=== PATIENT | male | born 1965 | race Caucasian/White ===

== ENCOUNTER 2018-09-12 14:13 | Inpatient (IN) ==
[~2018-09-12 14:13] MED LIST: D5 NS 1,000 ML IV ONE
[2018-09-12] MEDS ORDERED: D50W SYRINGE IV ONE (14:35)
[2018-09-12] MEDS ORDERED: VERSED IV ONE (14:39)
[2018-09-12] MEDS ORDERED: NS 1,000 ML ONE ×2 (14:40→17:21)
[2018-09-12] MEDS ORDERED: VERSED 100 MG in NS 80 ML IV SCH (14:45)
[2018-09-12 14:50] LABS: URINE SOURCE CATH
[2018-09-12 14:57] LABS: BILIRUBIN URINE NEGATIVE (NEGATIVE); BLOOD URINE LARGE (NEGATIVE); COLOR YELLOW; GLUCOSE URINE 200 mg/dL (NEGATIVE); KETONE URINE NEGATIVE (NEGATIVE); LEUKOCYTES URINE SMALL (NEGATIVE); NITRITE URINE NEGATIVE (NEGATIVE); PH URINE 5.5; PROTEIN URINE 70 mg/dL (NEGATIVE); SP GRAVITY URINE 1.018; TURBIDITY URINE HAZY (CLEAR); UROBILINOGEN URINE NORMAL (NORMAL)
[2018-09-12 14:58] LABS: BASO# 0.01 X1000 (0.0-0.2); BASO% 0.1 % (0.0-0.8); EOS# 0.02 X1000 (0.0-0.7); EOS% 0.2 % (0.0-10.0); HEMATOCRIT 33.8 % (42.0-52.0); HEMOGLOBIN 11.7 g/dL (14.0-18.0); IMM GRAN# 0.02 X1000 (0.0-0.04); IMM GRAN% 0.2 % (0.0-0.5); LYMPH# 0.97 X1000 (1.2-3.4); LYMPH% 9.3 % (20.5-51.1); MCHC 34.6 g/dL (33-37); MCV 89.4 FL (81-99); MONO% 5.8 % (1.7-9.3); MPV 11.4 FL (7.4-10.4); NEUT% 84.4 % (42.2-75.2); PLT 167 X1000 (130-400); RBC 3.78 XMIL (4.7-6.1); WBC 10.42 X1000 (4.8-10.8)
[2018-09-12 15:03] LABS: UR EPITHELIAL CELLS <10 /HPF (<10); URINE BACTERIA NEGATIVE /HPF; URINE RBC <10 /HPF (<10); URINE WBC <10 /HPF (<10)
[2018-09-12 15:10] LABS: BLOOD TYPE ARTERIAL; SAMPLE BLOOD
[2018-09-12 15:11] LABS: ALLEN TEST YES; BE -13.2 mmoll (-3.0-3.0); HCO3-(ACT) 14.7 mmoll (20.0-26.0); METHB 0.4 % (0.0-1.5); O2(CT) 15.9 mL/dL (15.0-23.0); O2HB 98.9 % (95.0-99.0); PCO2(98.6) 34 mmHg (35-45); PO2(98.6) 562 mmHg (60-100); SRATE 18 BPM; THB 10.3 g/dL (11.5-17.4); TVOL 400 mL; pH(98.6) 7.21 (7.35-7.45)
[2018-09-12 15:12] LABS: MODALITY VENTILATOR
[2018-09-12 15:12] LABS: UR AMPHETAMINES QUAL NONE DETECTED (NONE DETECT); UR BARBITUATES QUAL NONE DETECTED (NONE DETECT); UR BENZODIAZEPIN QUAL NONE DETECTED (NONE DETECT); UR CANNABINOIDS QUAL NONE DETECTED (NONE DETECT); UR COCAINE QUAL NONE DETECTED (NONE DETECT); UR METHADONE QUAL NONE DETECTED (NONE DETECT); UR OPIATES QUAL NONE DETECTED (NONE DETECT); UR OXYCODONE QUAL PRESUMPTIVE POSITIVE (NONE DETECT); UR PCP QUAL NONE DETECTED (NONE DETECT)
[2018-09-12] MEDS ORDERED: ZOSYN 3.375 GM in NS 50 ML IV ONE (15:27)
[2018-09-12] MEDS ORDERED: VANCOMYCIN 1 GM/NS 1 GM/250 ML IVPB IV ONE (15:27)
[2018-09-12 15:30] LABS: URINE CASTS GRANULAR PRESENT; URINE CRYSTALS NONE SEEN; URINE SMALL ROUND CELLS TRANS PRESENT; URINE YEAST NONE SEEN
[2018-09-12 15:48] LABS: INR 1.52; PROTIME 19.4 Seconds (11.0-16.0)
[2018-09-12 15:49] LABS: PTT 37.1 Seconds (22.3-41.8)
[2018-09-12] MEDS ORDERED: SOLU-CORTEF IV ONE (15:49)
[2018-09-12] MEDS ORDERED: D5 NS 1,000 ML ONE (15:51)
--- NOTE | 2018-09-12 16:07 | Diag Imaging Result Doc PS360 ---
EXAM: CHEST-1 VIEW INDICATION: full arrest TECHNIQUE: One view COMPARISON: None. FINDINGS: There is an ET tube with the tip projecting over the trachea just below the thoracic inlet CT. The lungs are grossly clear. There is no discrete pleural fluid collection or pneumothorax. The cardiomediastinal silhouette and central vasculature are grossly unremarkable. IMPRESSION: ET tube as described. No evidence of acute chest pathology by plain radiograph, otherwise. Electronically signed by Corby Wade 09/12/2018 4:05 PM
[2018-09-12 16:36] LABS: CK PROFILE 16342 U/L (24-204)
[2018-09-12 16:38] LABS: AGAP 25; ALB/GLOB RATIO 0.6; ALBUMIN 2.3 g/dL (3.5-5.0); ALKALINE PHOSPHATASE 189 U/L (32-122); BUN 71 mg/dL (8-22); CHLORIDE 95 mmol/L (98-107); COSMO 291; GLUCOSE 140 mg/dL (70-104); GOT 447 U/L (10-34); GPT 180 U/L (10-44); POTASSIUM 4.6 mmol/L (3.5-5.1); SODIUM 134 mmol/L (136-145); TCO2 14 mmol/L (25-35); TOTAL BILIRUBIN 1.09 mg/dL (0.20-1.00); TOTAL PROTEIN 6.3 g/dL (6.3-8.3)
--- NOTE | 2018-09-12 16:39 | Diag Imaging Result Doc PS360 ---
EXAM: CT HEAD/C-SPINE W/O CONTRAST INDICATION: trauma full arrest TECHNIQUE: This exam was performed using automated exposure control, adjustment of mA or kV according to patient size, and/or use of iterative reconstruction technique. COMPARISON: None. FINDINGS: Head: There is no definite acute infarct given the limited sensitivity of CT versus MRI. There is no discrete intracranial mass, mass effect, or intracranial hemorrhage. There is some degree of sinus mucosal thickening and there are a few air-fluid levels in the paranasal sinuses that are likely related to recent intubation. C-spine: There is mild degenerative disc disease at several levels, probably most significant at C6-7 where there is mild central canal narrowing. Otherwise, there is no discrete fracture, subluxation, or intrinsic osseous lesion. The surrounding soft tissues are essentially unremarkable. IMPRESSION: 1.No evidence of acute intracranial pathology. 2.No evidence of fracture or other definite acute C-spine injury. Electronically signed by Corby Wade 09/12/2018 4:37 PM
[2018-09-12 16:41] LABS: CREATININE 6.4 mg/dL (0.7-1.2)
[2018-09-12 16:42] LABS: CALCIUM 5.9 mg/dL (8.8-10.2)
[2018-09-12 16:58] LABS: CK INDEX 1.4 (0.0-2.5)
--- NOTE | 2018-09-12 17:06 | Diag Imaging Result Doc PS360 ---
EXAM: CT THORAX/ABD/PELVIS W/CON INDICATION: full arrest TECHNIQUE: This exam was performed using automated exposure control, adjustment of mA or kV according to patient size, and/or use of iterative reconstruction technique. COMPARISON: None. FINDINGS: CHEST: There is prominent bronchial mucosal thickening throughout both lungs bilaterally indicating bronchitis. There are patchy fine reticulonodular densities bilaterally throughout both lungs, most of which exhibit a tree-in-bud morphology. This indicates bronchiolitis, probably infectious. There are isolated patchy areas of mild groundglass opacity suggesting patchy pneumonitis. There is no pleural fluid collection and no pneumothorax. There are several prominent mediastinal and hilar lymph nodes that are probably reactive. There is no cardiomegaly. There is mild irregularity involving several of the lower ribs. However, this has the appearance of motion artifact. The bony structures of the thorax are grossly intact, otherwise. ABDOMEN/PELVIS: The liver parenchyma is subtly heterogeneous in there is a nodular liver contour indicating cirrhosis. There has been a prior cholecystectomy. There is no evidence of significant biliary dilatation. There is trace free fluid at the dome of the liver. There is nonspecific heterogeneous enhancement of the spleen on the venous phase. The spleen is not enlarged. There is trace fluid on the left that extends from the spleen and into the paracolic gutter. This somewhat hyperdense. Given the hyperdensity as well as the heterogeneous enhancement of the spleen, splenic injury with associated trace hemorrhage cannot be excluded. No well-defined splenic laceration can be identified, however. The pancreas appears atrophic. It is grossly unremarkable, otherwise. There is heterogeneous renal enhancement bilaterally, more prominent on the left in the pattern of a striated nephrogram. Although nonspecific, this is often associated with pyelonephritis. No perinephric hematoma is appreciated. Please correlate clinically. There is no hydronephrosis. A Kaplan catheter is in place in the bladder, which is largely nondistended. There are a few fluid-filled loops of small bowel without significant distention. This may represent a mild ileus. There is moderate distention of the stomach. The GI tract is essentially unremarkable, otherwise. There is no evidence of acute osseous abnormality involving the abdomen or pelvis. IMPRESSION: 1.Bronchial mucosal thickening bilaterally indicating bronchitis. 2.Fine reticulonodular and tree-in-bud infiltrate throughout both lungs suggesting bronchiolitis. Minimal scattered groundglass opacities suggesting mild pneumonitis. 3.Cirrhotic liver. 4.Heterogeneous splenic enhancement with trace hyperdense fluid extending from the spleen and into the left paracolic gutter. Given the abnormal enhancement, splenic injury with trace hemorrhage cannot be excluded. No well-defined splenic laceration can be identified, however. Please correlate clinically. 5.Heterogeneous enhancement of the kidneys and a pattern of a striated nephrogram, more prominent on the right. Although nonspecific, this pattern is often associated with pyelonephritis. Please correlate clinically. 6.A few fluid-filled loops of small bowel without significant distention and moderate distention of the stomach. This is nonspecific but may represent mild ileus. Electronically signed by Corby Wade 09/12/2018 5:04 PM
[2018-09-12] MEDS ORDERED: ATIVAN IV ONE (17:14)
--- NOTE | 2018-09-12 18:03 | PROVIDER DOCUMENTATION ---
This chart was entered by Elva Lowe Scribe, acting as scribe for Sergio Alarcon MD. HPI-Critical Care - General Chief Complaint: Full Arrest Stated Complaint: resp arrest Time Seen by Provider: 09/12/18 14:15 Patient arrived via EMS?: Yes Source: family, EMS Allergies/Adverse Reactions: Allergies Allergy/AdvReac Type Severity Reaction Status Date / Time Unable to Assess Allergy Unverified 09/12/18 14:33 - History of Present Illness-Critical Care Nature of Presenting Problem: The pt presents to ED via EMS unresponsive and intubated. EMS reports he was found unresponsive with agonal breathing face down in his house by a family member, who started bystander CPR. Pt has hx liver cirrhosis. Family states he has been altered and using his walker for the past few days. EMS reports they intubated the pt prior to ED arrival and he has had some periods of spontaneous respirations. FSBS 21 upon ED arrival. Breath sounds greater on the right on arrival. Respiratory states the ETT is at 28 cm at the lip, so tube was pulled back to 21 cm resulting in equal breath sounds bilaterally. Pt is unresponsive with fixed, nonreactive pupils. Location of Pain/Injury: reports: none Quality of Pain: reports: none Severity in ED: reports: severe Onset/Duration: reports: unsure Timing: reports: still present EMS Initial Findings:: unresponsive, sinus rhythm, other (agonal respirations) Pre-hospital Treatment: Initiated oxygen, Initiated intubated, Initiated CPR Associated Symptoms: reports: other (unresponsive with agonal breathing; AMS/using walker for the past few days) Loss of Consciousness: still comatose Improves Condition (Modifying Factors): improves with: nothing Nitro Today/Relief: no nitro taken today Aspirin Treatment Today: no aspirin today Prior Chest Pain/Cardiac Workup: reports: no prior chest pain, no prior cardiac workup Similar Symptoms Previously?: No Recently Seen Here or By Another Healthcare Provider: No - Cardiopulmonary Resuscitation Onset: unsure Witnessed arrest?: No Noted by:: family Bystander CPR?: Yes Down-time before ACLS?: unknown Reason for Code Blue?: unresponsive CPR initiated before doctor arrival?: Yes (bystander on scene) Initial Findings: unresponsive, agonal respirations Treatment initiated prior to doctor arrival?: Initiated oxygen, Initiated intubated, Initiated CPR/thumper Review of Systems - Adult - REVIEW OF SYSTEMS - ADULT ROS:: unobtainable per condition (unresponsive; agonal respirations) Constitutional: reports: no symptoms reported Eyes: reports: no symptoms reported Ears, Nose, Mouth & Throat: reports: no symptoms reported Cardiovascular: reports: no symptoms reported Respiratory: reports: no symptoms reported Gastrointestinal: reports: no symptoms reported Genitourinary: reports: no symptoms reported Musculoskeletal: reports: no symptoms reported Integumentary: reports: no symptoms reported Neurological: reports: no symptoms reported Psychiatric: reports: no symptoms reported Endocrine: reports: no symptoms reported Hematologic/Lymphatic: reports: no symptoms reported Allergic/Immunologic: reports: no symptoms reported All Other Systems: Reviewed and Negative Past History - Adult - PAST MEDICAL HISTORY-ADULT Review of Records: reports: Old Records Reviewed, Nursing Assessment Review, Medications Reviewed Major Childhood Illnesses: reports: history unknown Gastrointestinal: reports: liver disease (cirrhosis) - PRIOR SURGERIES/PROCEDURES Surgical/Procedure History: reports: none - IMMUNIZATION STATUS Childhood Immunizations: See Nurse Assessment Flu Vaccine: See Nurse Assessment - FAMILY HISTORY Family History: reviewed, not pertinent - SOCIAL HISTORY Living Situation: alone Physical Exam-General - PHYSICAL EXAM-ADULT Initial Vital Signs Reviewed: Yes - CONSTITUTIONAL General Appearance: other (unresponsive; intubated upon ED arrival) - EYES Eyes: pink conjunctivae, other (pupils 4 mm, nonreactive to light, fixed) - HEAD, EARS, NOSE, MOUTH & THROAT HENMT: normocephalic/atraumatic, moist mucous membranes, other (abrasions to L upper forehead and L upper maxillary region) - RESPIRATORY Respiratory: other (unresponsive; intubated upon ED arrival; abrasion to L anterior ribs) - CARDIOVASCULAR Cardiovascular: normal peripheral pulses, regular rate, rhythm - GASTROINTESTINAL (ABDOMEN) Abdominal Exam: soft, abnormal bowel sounds (absent). negative: normal bowel sounds - MUSCULOSKELETAL Extremity: pulse deficit (no pedal pulses detected upon physical exam or doppler), other (abrasions to L medial upper extremity and bilateral knees) - SKIN Integumentary: warm/dry, abrasion(s) (L upper forehead, L upper maxillary region, L anterior ribs, L medial upper extremity, bilateral knees). negative: normal color (discoloration of skin of bilateral feet) - NEUROLOGIC Neurologic: other (unresponsive; intubated upon ED arrival) - PSYCHIATRIC Psych/Mental Status: other (unresponsive; intubated upon ED arrival) Progress - PLAN OF CARE/RESULTS Progress/Plan/Lab Results: Vital Signs - 8 hr 09/12/18 14:18 09/12/18 14:29 Pulse Rate 74 67 Respiratory Rate 18 28 H Blood Pressure 103/66 O2 Sat by Pulse Oximetry 100 100 09/12/18 16:30 Stool Occult Blood (LEO) - Final Stool Laboratory Results - last 24 hr 09/12/18 09/12/18 09/12/18 14:26 14:26 14:26 WBC 10.42 RBC 3.78 L Hgb 11.7 L Hct 33.8 L MCV 89.4 MCH 31.0 MCHC 34.6 RDW Std Deviation 17.0 H Plt Count 167 MPV 11.4 H Immature Gran % (Auto) 0.2 Neut % (Auto) 84.4 H Lymph % (Auto) 9.3 L [place] % (Auto) 5.8 Eos % (Auto) 0.2 Baso % (Auto) 0.1 Immature Gran # (Auto) 0.02 Neut # (Auto) 8.80 H Lymph # (Auto) 0.97 L [place] # (Auto) 0.60 H Eos # (Auto) 0.02 Baso # (Auto) 0.01 PT INR PTT (Actin FS) Specimen Type Sample Site pH pCO2 pO2 HCO3 Base Excess Oxyhemoglobin ABG O2 Sat (Calculated) ABG O2 Saturation ABG Carboxyhemoglobin ABG Methemoglobin Memo Test A-a O2 Difference Total Hemoglobin Lactate Blood Gas Modality Spontaneous Rate FiO2 % Tidal Volume PEEP Sodium Cancelled Potassium Cancelled Chloride Cancelled Carbon Dioxide Cancelled Anion Gap Cancelled BUN Cancelled Creatinine Cancelled Estimated GFR/1.73 m2 Cancelled BUN/Creatinine Ratio Cancelled Glucose Cancelled POC Glucose Calculated Osmolality Cancelled Calcium Cancelled Total Bilirubin Cancelled AST Cancelled ALT Cancelled Alkaline Phosphatase Cancelled Ammonia Creatine Kinase Cancelled Creatine Kinase Index Cancelled CK-MB (CK-2) Cancelled Troponin T Total Protein Cancelled Albumin Cancelled Globulin Cancelled Albumin/Globulin Ratio Cancelled Plasma Lactate 3.2 H Urine Source Urine Color Urine Turbidity Urine pH Ur Specific [place] Urine Protein Ur Glucose (Stick) Ur Ketones (Stick) Urine Blood Urine Nitrite Urine Bilirubin Urobilinogen Dipstick Urine Leukocytes Urine WBC (Auto) Urine RBC (Auto) U Epithel Cells (Auto) Urine Bacteria (Auto) Urine Crystals Small Round Cells Urine Casts Urine Yeast-like Cells Urine Opiates Screen Ur Oxycodone Screen Ur Methadone, Qual Ur Barbiturates Screen Ur Phencyclidine Scrn Ur Amphetamines Screen U Benzodiazepines Scrn Urine Cocaine Screen U Cannabinoids Screen Blood Type Antibody Screen Crossmatch 09/12/18 09/12/18 09/12/18 14:26 14:26 14:26 WBC RBC Hgb Hct MCV MCH MCHC RDW Std Deviation Plt Count MPV Immature Gran % (Auto) Neut % (Auto) Lymph % (Auto) [place] % (Auto) Eos % (Auto) Baso % (Auto) Immature Gran # (Auto) Neut # (Auto) Lymph # (Auto) [place] # (Auto) Eos # (Auto) Baso # (Auto) PT 19.4 H INR 1.52 PTT (Actin FS) 37.1 Specimen Type Sample Site pH pCO2 pO2 HCO3 Base Excess Oxyhemoglobin ABG O2 Sat (Calculated) ABG O2 Saturation ABG Carboxyhemoglobin ABG Methemoglobin Memo Test A-a O2 Difference Total Hemoglobin Lactate Blood Gas Modality Spontaneous Rate FiO2 % Tidal Volume PEEP Sodium Potassium Chloride Carbon Dioxide Anion Gap BUN Creatinine Estimated GFR/1.73 m2 BUN/Creatinine Ratio Glucose POC Glucose Calculated Osmolality Calcium Total Bilirubin AST ALT Alkaline Phosphatase Ammonia 411 H Creatine Kinase Creatine Kinase Index CK-MB (CK-2) Troponin T 0.447 H* Total Protein Albumin Globulin Albumin/Globulin Ratio Plasma Lactate Urine Source Urine Color Urine Turbidity Urine pH Ur Specific [place] Urine Protein Ur Glucose (Stick) Ur Ketones (Stick) Urine Blood Urine Nitrite Urine Bilirubin Urobilinogen Dipstick Urine Leukocytes Urine WBC (Auto) Urine RBC (Auto) U Epithel Cells (Auto) Urine Bacteria (Auto) Urine Crystals Small Round Cells Urine Casts Urine Yeast-like Cells Urine Opiates Screen Ur Oxycodone Screen Ur Methadone, Qual Ur Barbiturates Screen Ur Phencyclidine Scrn Ur Amphetamines Screen U Benzodiazepines Scrn Urine Cocaine Screen U Cannabinoids Screen Blood Type Antibody Screen Crossmatch 09/12/18 09/12/18 09/12/18 14:30 14:41 14:41 WBC RBC Hgb Hct MCV MCH MCHC RDW Std Deviation Plt Count MPV Immature Gran % (Auto) Neut % (Auto) Lymph % (Auto) [place] % (Auto) Eos % (Auto) Baso % (Auto) Immature Gran # (Auto) Neut # (Auto) Lymph # (Auto) [place] # (Auto) Eos # (Auto) Baso # (Auto) PT INR PTT (Actin FS) Specimen Type Sample Site pH pCO2 pO2 HCO3 Base Excess Oxyhemoglobin ABG O2 Sat (Calculated) ABG O2 Saturation ABG Carboxyhemoglobin ABG Methemoglobin Memo Test A-a O2 Difference Total Hemoglobin Lactate Blood Gas Modality Spontaneous Rate FiO2 % Tidal Volume PEEP Sodium Potassium Chloride Carbon Dioxide Anion Gap BUN Creatinine Estimated GFR/1.73 m2 BUN/Creatinine Ratio Glucose POC Glucose 21 L Calculated Osmolality Calcium Total Bilirubin AST ALT Alkaline Phosphatase Ammonia Creatine Kinase Creatine Kinase Index CK-MB (CK-2) Troponin T Total Protein Albumin Globulin Albumin/Globulin Ratio Plasma Lactate Urine Source CATH Urine Color YELLOW Urine Turbidity HAZY Urine pH 5.5 Ur Specific [place] 1.018 Urine Protein 70 A Ur Glucose (Stick) 200 A Ur Ketones (Stick) NEGATIVE Urine Blood LARGE A Urine Nitrite NEGATIVE Urine Bilirubin NEGATIVE Urobilinogen Dipstick NORMAL Urine Leukocytes SMALL A Urine WBC (Auto) <10 Urine RBC (Auto) <10 U Epithel Cells (Auto) <10 Urine Bacteria (Auto) NEGATIVE Urine Crystals NONE SEEN Small Round Cells TRANS PRESENT Urine Casts GRANULAR PRESENT Urine Yeast-like Cells NONE SEEN Urine Opiates Screen NONE DETECTED Ur Oxycodone Screen PRESUMPTIVE POSITIVE A Ur Methadone, Qual NONE DETECTED Ur Barbiturates Screen NONE DETECTED Ur Phencyclidine Scrn NONE DETECTED Ur Amphetamines Screen NONE DETECTED U Benzodiazepines Scrn NONE DETECTED Urine Cocaine Screen NONE DETECTED U Cannabinoids Screen NONE DETECTED Blood Type Antibody Screen Crossmatch 09/12/18 09/12/18 09/12/18 14:54 15:00 15:40 WBC RBC Hgb Hct MCV MCH MCHC RDW Std Deviation Plt Count MPV Immature Gran % (Auto) Neut % (Auto) Lymph % (Auto) [place] % (Auto) Eos % (Auto) Baso % (Auto) Immature Gran # (Auto) Neut # (Auto) Lymph # (Auto) [place] # (Auto) Eos # (Auto) Baso # (Auto) PT INR PTT (Actin FS) Specimen Type ARTERIAL Sample Site R RADIAL pH 7.21 L pCO2 34 L pO2 562 H HCO3 14.7 L Base Excess -13.2 L Oxyhemoglobin 98.9 ABG O2 Sat (Calculated) 15.9 ABG O2 Saturation 101.0 H ABG Carboxyhemoglobin 1.70 ABG Methemoglobin 0.4 Memo Test YES A-a O2 Difference 109.0 Total Hemoglobin 10.3 L Lactate 3.30 H Blood Gas Modality VENTILATOR Spontaneous Rate 18 FiO2 % 100.0 Tidal Volume 400 PEEP 5.0 Sodium Potassium Chloride Carbon Dioxide Anion Gap BUN Creatinine Estimated GFR/1.73 m2 BUN/Creatinine Ratio Glucose POC Glucose 240 H D Calculated Osmolality Calcium Total Bilirubin AST ALT Alkaline Phosphatase Ammonia Creatine Kinase Creatine Kinase Index CK-MB (CK-2) Troponin T Total Protein Albumin Globulin Albumin/Globulin Ratio Plasma Lactate Urine Source Urine Color Urine Turbidity Urine pH Ur Specific [place] Urine Protein Ur Glucose (Stick) Ur Ketones (Stick) Urine Blood Urine Nitrite Urine Bilirubin Urobilinogen Dipstick Urine Leukocytes Urine WBC (Auto) Urine RBC (Auto) U Epithel Cells (Auto) Urine Bacteria (Auto) Urine Crystals Small Round Cells Urine Casts Urine Yeast-like Cells Urine Opiates Screen Ur Oxycodone Screen Ur Methadone, Qual Ur Barbiturates Screen Ur Phencyclidine Scrn Ur Amphetamines Screen U Benzodiazepines Scrn Urine Cocaine Screen U Cannabinoids Screen Blood Type O POSITIVE Antibody Screen NEGATIVE Crossmatch See Detail 09/12/18 09/12/18 09/12/18 15:46 15:48 17:30 WBC RBC Hgb Hct MCV MCH MCHC RDW Std Deviation Plt Count MPV Immature Gran % (Auto) Neut % (Auto) Lymph % (Auto) [place] % (Auto) Eos % (Auto) Baso % (Auto) Immature Gran # (Auto) Neut # (Auto) Lymph # (Auto) [place] # (Auto) Eos # (Auto) Baso # (Auto) PT INR PTT (Actin FS) Specimen Type Sample Site pH pCO2 pO2 HCO3 Base Excess Oxyhemoglobin ABG O2 Sat (Calculated) ABG O2 Saturation ABG Carboxyhemoglobin ABG Methemoglobin Memo Test A-a O2 Difference Total Hemoglobin Lactate Blood Gas Modality Spontaneous Rate FiO2 % Tidal Volume PEEP Sodium 134 L Potassium 4.6 Chloride 95 L Carbon Dioxide 14 L Anion Gap 25 BUN 71 H Creatinine 6.4 H Estimated GFR/1.73 m2 BUN/Creatinine Ratio 11 Glucose 140 H POC Glucose 135 H 216 H D Calculated Osmolality 291 Calcium 5.9 L* Total Bilirubin 1.09 H AST 447 H ALT 180 H Alkaline Phosphatase 189 H Ammonia Creatine Kinase 65118 H Creatine Kinase Index 1.4 CK-MB (CK-2) 235.80 H Troponin T Total Protein 6.3 Albumin 2.3 L Globulin 4.0 Albumin/Globulin Ratio 0.6 Plasma Lactate Urine Source Urine Color Urine Turbidity Urine pH Ur Specific [place] Urine Protein Ur Glucose (Stick) Ur Ketones (Stick) Urine Blood Urine Nitrite Urine Bilirubin Urobilinogen Dipstick Urine Leukocytes Urine WBC (Auto) Urine RBC (Auto) U Epithel Cells (Auto) Urine Bacteria (Auto) Urine Crystals Small Round Cells Urine Casts Urine Yeast-like Cells Urine Opiates Screen Ur Oxycodone Screen Ur Methadone, Qual Ur Barbiturates Screen Ur Phencyclidine Scrn Ur Amphetamines Screen U Benzodiazepines Scrn Urine Cocaine Screen U Cannabinoids Screen Blood Type Antibody Screen Crossmatch Orders Category Date Time Status FSBS/Accucheck Result Q4HR Care 09/12/18 18:19 Active Saline Loc NOW Care 09/12/18 14:24 Active CHEST-1 VIEW [RAD] Stat Exams 09/12/18 15:[address] HEAD/C-SPINE W/O CONTRAST [CT] Stat Exams 09/12/18 14:[address] THORAX/ABD/PELVIS W/CON [CT] Stat Exams 09/12/18 14:45 Completed ABG [RESP] Routine Lab 09/12/18 15:00 Completed AMMONIA [CHEM] Stat Lab 09/12/18 14:26 Completed BLOOD CULTURE [BLDCUL] Stat Lab 09/12/18 14:26 Results CBC WITH ELECTRONIC DIFF [HEME] Stat Lab 09/12/18 14:26 Completed CK PROFILE [SP CHEM] Stat Lab 09/12/18 15:48 Completed COMPREHENSIVE METABOLIC PANEL [CHEM] Stat Lab 09/12/18 15:48 Completed LACTATE, PLASMA [CHEM] Stat Lab 09/12/18 14:26 Completed OCCULT BLOOD SCREENING [STOOL] Stat Lab 09/12/18 16:30 Completed PRBC [LRPC (RED CELLS)] [BBK] Stat Lab 09/12/18 15:40 Results PROTIME WITH INR [COAG] Stat Lab 09/12/18 14:26 Completed PTT [COAG] Stat Lab 09/12/18 14:26 Completed TROPONIN T Stat Lab 09/12/18 14:26 Completed TYPE & SCREEN [BBK] Stat Lab 09/12/18 15:40 Results URINALYSIS W/POSS RFLX CULT [URINALYSIS] Stat Lab 09/12/18 14:41 Completed URINE CULTURE [RM] Routine Lab 09/12/18 15:43 Received URINE DRUG SCREEN Stat Lab 09/12/18 14:41 Completed URINE MANUAL MICROSCOPIC [URINALYSIS] Stat Lab 09/12/18 14:41 Completed 0.9% Sodium Chloride Inj [Ns] 1,000 ml Med 09/12/18 14:40 Discontinued .ROUTE As directed 0.9% Sodium Chloride Inj [Ns] 1,000 ml Med 09/12/18 17:21 Discontinued .ROUTE As directed 0.9% Sodium Chloride Inj [Ns] 80 ml Med 09/12/18 14:45 Active Midazolam [Versed] 100 mg IV As Directed mls/hr Dextrose 5%-0.45% NaCl Inj [D5 1/2 Ns] 250 ml Med 09/12/18 15:45 Active Norepinephrine [Levophed] 8 mg IV As Directed mls/hr Dextrose 5%-0.9% NaCl Inj [D5 Ns] 1,000 ml Med 09/12/18 15:51 Discontinued .ROUTE As directed Dextrose 5%-0.9% NaCl Inj [D5 Ns] 1,000 ml Med 09/12/18 18:19 Active IV 75 mls/hr Dextrose 5%-0.9% NaCl Inj [D5 Ns] 1,000 ml Med 09/12/18 13:50 Discontinued IV 999 mls/hr Dextrose 50% Syringe [D50w Syringe] Med 09/12/18 14:35 Discontinued 50 ml IV ONCE ONE Hydrocortisone Sod Succinate [Solu-Cortef] Med 09/12/18 15:49 Discontinued 100 mg IV NOW ONE Lorazepam [Ativan] Med 09/12/18 17:14 Discontinued 1 mg IV NOW ONE Midazolam [Versed] Med 09/12/18 14:39 Discontinued See Dose Instructions IV NOW ONE Piperacillin/Tazobactam [Zosyn] 3.375 gm Med 09/12/18 15:27 Discontinued 0.9% Sodium Chloride Inj [Ns] 50 ml IV NOW Vancomycin 1 gm/Ns Med 09/12/18 15:27 Discontinued 1 gm in 250 ml IV NOW Ventilator Order Stat Oth 09/12/18 14:20 Active EKG [EKG] Stat Ther 09/12/18 14:24 Ordered Transfer/Admit Order [TRANSFER] Routine Transfer 09/12/18 17:41 Ordered A/P: Pt arrived unresponsive, multiple abrasions, BG 21, started D50 X2, Vanc / zosyn, 3 L NS, 2 Units PRBC, ammonia level 411, pt intubated, repositioned tube as ot was sat low 70 Oxygen, pt BP lowered started pressers, Dr fong notified for possible splenic laceration, will admit to ICU, consider dialysis, Florentin NUNEZ notified of admission. Result Diagrams: 09/12/18 14:26 09/12/18 15:48 - REASSESSMENT Reassessment #1 Time Reassessed: 16:05 Status: other (Dr. Alarcon called to bedside. Pt incontinent of stool. Nursing staff reports hematemesis.) - XRAY 1 XRAY Study: Chest Impression: See EMR Report ([facility] - [address] [place] [address], [address], [place] [address] [facility] - [address] , [place] [address] Department of Imaging Patient: [id number] Date: 09/12/18#: [id number] : 9ADM Status: PRE ERAcct#: [id number] Age/Sex: 89/MRoom/Bed: Loc: ED Ordering Physician: Sergio Alarcon MD Family Physician: None,PCP Reason for Procedure: full arrest Signed EXAM: CHEST-1 VIEW INDICATION: full arrest TECHNIQUE: One view COMPARISON: None. FINDINGS: There is an ET tube with the tip projecting over the trachea just below the thoracic inlet CT. The lungs are grossly clear. There is no discrete pleural fluid collection or pneumothorax. The cardiomediastinal silhouette and central vasculature are grossly unremarkable. IMPRESSION: ET tube as described. No evidence of acute chest pathology by plain radiograph, otherwise. Electronically signed by Corby Wade 09/12/2018 4:05 PM 09/12/18 1215 Interpreting Physician: Corby Wade MD Dictated Date/Time: 09/12/18 1609 cc: Sergio Alarcon MD; None,PCP) - CT/MRI 1 CT Study: Cervical Spine, Head Impression: See EMR Report ([facility] - [address] , [address], [place] [address] [facility] - [address] [place] [address] Department of Imaging Patient: SALAS [id number] Date: 09/12/18#: [id number] : 03/02/1897DM Status: PRE ERAcct#: [id number] Age/Sex: 89/MRoom/Bed: Loc: ED Ordering Physician: Sergio Alarcon MD Family Physician: None,PCP Reason for Procedure: trauma full arrest ___ Signed EXAM: CT HEAD/C-SPINE W/O CONTRAST INDICATION: trauma full arrest TECHNIQUE: This exam was performed using automated exposure control, adjustment of mA or kV according to patient size, and/or use of iterative reconstruction technique. COMPARISON: None. FINDINGS: Head: There is no definite acute infarct given the limited sensitivity of CT versus MRI. There is no discrete intracranial mass, mass effect, or intracranial hemorrhage. There is some degree of sinus mucosal thickening and there are a few air-fluid levels in the paranasal sinuses that are likely related to recent intubation. C-spine: There is mild degenerative disc disease at several levels, probably most significant at C6-7 where there is mild central canal narrowing. Otherwise, there is no discrete fracture, subluxation, or intrinsic osseous lesion. The surrounding soft tissues are essentially unremarkable. IMPRESSION: 1.No evidence of acute intracranial pathology. 2.No evidence of fracture or other definite acute C-spine injury. Electronically signed by Corby Wade 09/12/2018 4:37 PM 09/12/18 1637 Interpreting Physician: Corby Wade MD Dictated Date/Time: 09/12/18 1633 cc: Octaviano Alarcon MD; None,PCP) 2 CT Study: Abdomen, Pelvis, Thorax Impression: See EMR Report ([facility] - [address], [address], [place] [address] [facility] - [address] [place] [address] Department of Imaging Patient: SALAS [id number] Date: 09/12/18#: [id number] : 03/02/1897DM Status: PRE ERAcct#: [id number] Age/Sex: 89/MRoom/Bed: Loc: ED Ordering Physician: Sergio Alarcon MD Family Physician: None,PCP Reason for Procedure: full arrest Signed EXAM: CT THORAX/ABD/PELVIS W/CON INDICATION: full arrest TECHNIQUE: This exam was performed using automated exposure control, adjustment of mA or kV according to patient size, and/or use of iterative reconstruction technique. COMPARISON: None. FINDINGS: CHEST: There is prominent bronchial mucosal thickening throughout both lungs bilaterally indicating bronchitis. There are patchy fine reticulonodular densities bilaterally throughout both lungs, most of which exhibit a tree-in-bud morphology. This indicates bronchiolitis, probably infectious. There are isolated patchy areas of mild groundglass opacity suggest ing patchy pneumonitis. There is no pleural fluid collection and no pneumothorax. There are several prominent mediastinal and hilar lymph nodes that are probably reactive. There is no cardiomegaly. There is mild irregularity involving several of the lower ribs. However, this has the appearance of motion artifact. The bony structures of the thorax are grossly intact, otherwise. ABDOMEN/PELVIS: The liver parenchyma is subtly heterogeneous in there is a nodular liver contour indicating cirrhosis. There has been a prior cholecystectomy. There is no evidence of significant biliary dilatation. There is trace free fluid at the dome of the liver. There is nonspecific heterogeneous enhancement of the spleen on the venous phase. The spleen is not enlarged. There is trace fluid on the left that extends from the spleen and into the paracolic gutter. This somewhat hyperdense. Given the hyperdensity as well as the heterogeneous enhancement of the spleen, splenic injury with associated trace hemorrhage cannot be excluded. No well-defined splenic laceration can be identified, however. The pancreas appears atrophic. It is grossly unremarkable, otherwise. There is heterogeneous renal enhancement bilaterally, more prominent on the left in the pattern of a striated nephrogram. Although nonspecific, this is often associated with pyelonephritis. No perinephric hematoma is appreciated. Please correlate clinically. There is no hydronephrosis. A Kaplan catheter is in place in the bladder, which is largely nondistended. There are a few fluid- filled loops of small bowel without significant distention. This may represent a mild ileus. There is moderate distention of the stomach. The GI tract is ess entially unremarkable, otherwise. There is no evidence of acute osseous abnormality involving the abdomen or pelvis. IMPRESSION: 1.Bronchial mucosal thickening bilaterally indicating bronchitis. 2.Fine reticulonodular and tree-in-bud infiltrate throughout both lungs suggesting bronchiolitis. Minimal scattered groundglass opacities suggesting mild pneumonitis. 3.Cirrhotic liver. 4.Heterogeneous splenic enhancement with trace hyperdense fluid extending from the spleen and into the left paracolic gutter. Given the abnormal enhancement, splenic injury with trace hemorrhage cannot be excluded. No well-defined splenic laceration can be identified, however. Please correlate clinically. 5.Heterog eneous enhancement of the kidneys and a pattern of a striated nephrogram, more prominent on the right. Although nonspecific, this pattern is often associated with pyelonephritis. Please correlate clinically. 6.A few fluid-filled loops of small bowel without significant distention and moderate distention of the stomach. This is nonspecific but may represent mild ileus. Electronically signed by Corby Wade 09/12/2018 5:04 PM 09/12/18 6295 Interpreting Physician: Corby aWde MD Dictated Date/Time: 09/12/18 0316 cc: Sergio Alarcon MD; None,PCP) - CONSULTS/PCP/HOSPITALIST Notification #1 *Consult/PCP/Hospitalist*: [id number] stein Time Discussed: 17:30 Consult Disposition: other (start rifampim and lactulose thru NG tube) #2 Consult: Dr Fong Time Discussed: 17:23 (give 2 units PRBC) #3 Consult: florentin BAUTISTA for hospitalist Time Discussed: 17:33 Consult Disposition: Admit Departure - Departure Date of Disposition Decision: 09/12/18 Time of Disposition Decision: 17:35 DIAGNOSIS: Unresponsive Disposition: ADMITTED INPATIENT 09 Certified Medical Emergency: Emergent Condition: Stable Additional Freetext Instructions: We have examined and treated you today on an emergency basis only. This was not a substitute for, or an effort to provide, complete medical care. In most cases, you must let your doctor check you again. Tell your doctor about any new or lasting problems. We cannot recognize and treat all injuries or illnesses in one Emergency Department visit. If you had special tests, such as X-rays or CT scans, will be reviewed by radiologist and will call you if there are any new suggestions Follow up with primary care provider in 1 to 2 days if no improvement. If you do not have a primary care provider, you need to choose one as soon as possible. Take medicines as prescribed. Monitor for any side effects or adverse events from medications. If any side effect, adverse event or rash develops, or if you suspect any other adverse reaction to the medication, then discontinue the medication immediately and contact clinic /PCP or go to the nearest ER. Narcotic meds / sedative meds instruction - patent advised not to drive, operate any machinery or go into water after taking meds as it may impair mental ability to react to the situation in an appropriate manner . Continue other current medicines. Follow up with PCP within 24-48 hours, or sooner if symptoms worsen or fail to improve. Patient / guardian verbalizes understanding of treatment plan, medication, and side effects and agrees with treatment plan. Patient leaves ER in stable condition and ambulatory state. Return to ER as needed. Discharge instructions reviewed verbally and given to patient in written form. Follow up with primary care provider. Referrals and Follow-Ups: None,PCP [Primary Care Provider] - - Critical Care Note This patient required my direct & personal management of CC.: No Attestation - Physician/ CHANTELL Attestation Patient care was provided by Advanced Practice Provider:: No The physician spent face to face time with patient:: Yes Advanced Practice Provider documentation review:: Supervising physician onsite and consulted in the evaluation and care of this patient. The physician did have a face to face encounter with the patient. This chart was documented by the indicated scribe, (Elva Lowe, [place]) and accurately reflects the services I performed and decisions made by me, Sergio Alarcon MD, as attested by the provider's signature.
[2018-09-12] MEDS ORDERED: D5 NS 1,000 ML IV ONE (18:19)
--- NOTE | 2018-09-12 19:00 | HISTORY AND PHYSICAL ---
CHIEF COMPLAINT: Patient found unresponsive. HISTORY OF PRESENT ILLNESS: The patient is completely unresponsive, sedated and intubated. All the history is based upon the ER note and the information provided by the EMS team. Apparently, this patient was found today unresponsive at home by a family member. Apparently, he was provided CPR. We are not completely sure he was in cardiac arrest or just respiratory arrest. According to EMS he was found with agonal respirations. So he was intubated on the scene and brought to the emergency department. The patient apparently has history of liver cirrhosis. Apparently, a member of the family reported to the EMS team that he had been out there for a couple of days and he was using his walker more frequently. Upon arrival, the blood sugar has been 21. Apparently, the patient has many prescriptions for insulin and for pain pills as well. Here, he was found to have a low blood pressure. He has been started on vasopressors. He was found to have renal failure. Troponins were elevated. UDS was positive for oxycodone. So, at this point, he is going to be admitted to the unit for further evaluation and treatment. PAST MEDICAL HISTORY, PAST SURGICAL HISTORY, REVIEW OF SYSTEMS, ALLERGIES, SOCIAL HISTORY: Unable to assess. PHYSICAL EXAMINATION: VITALS: Temperature not recorded in the ER. Heart rate 74, respiratory rate 18, blood pressure 170/40 on the Levophed and O2 saturation 100% on mechanical ventilator. FiO2 100%. GENERAL: This is a chronically ill-appearing, male, lying in bed, in no acute distress. Sedated and intubated. HEENT: Head is normocephalic, atraumatic. Pupils unreactive to light and accommodation. Cornea reflexes absent. NECK: Very stiff. CARDIOVASCULAR: S1, S2 heard. No murmurs, gallops, or rubs. Regular rate and rhythm. RESPIRATORY EXAM: Coarse breath sounds noted in both pulmonary bases. The patient is not using any accessory muscles or having work of breathing. ABDOMEN: There is an excoriation on the level of the left upper quadrant. Abdomen is a little bit depressed. No signs of peritoneal irritation. Bowel sounds present, but distant. EXTREMITIES: They are cold to touch. No peripheral pulses noted in both lower extremities. Femoral pulses present. No clubbing or cyanosis. SKIN: There is some excoriation noted in the left side of the face, in the both knees and also in the left upper quadrant. In the abdomen. NEUROLOGICAL EXAM: Patient is sedated and intubated. LABORATORY DATA: White cell count 10.42, hemoglobin 11.7, hematocrit 33.4 with platelets 167,000. ABG shows pH 7.21 with pCO2 34, PO2 562 with FiO2 of 100%. The calcium is 5.9. AST 447, ALT 180. Troponins are 0.447. Creatine kinase is 16, 342. Glucose 140. UDS positive for oxycodone. The chest, abdomen and pelvis CT showed bronchial mucosal thickening bilaterally indicating bronchitis. There is a heterogeneous splenic enhancement with trace hyperdense fluid extending from the spleen into the left paracolic gutter. A splenic injury cannot be excluded. ASSESSMENT AND PLAN: 1. Acute respiratory failure on ventilator. 2. Status post cardiac arrest. 3. Acute bronchitis. 4. Acute renal failure. 5. Liver cirrhosis with hepatic encephalopathy and ammonia level over 400. 6. Shock. PLAN: At this point, we are not really sure what exactly has happened to this patient. I do not know if he was found unresponsive because of oxycodone overdose. Also, he was found to have a low blood sugar of 20. In any case, we are going to continue with IV fluids. Because of this hypoglycemia, we are going to provide D5 normal saline at 75 mL per hour. We are going to check blood sugars every 4 hours. We are going to consult Cardiology for cardiac arrest and the raise in troponin. We are going to trend troponins 3 more times and do echocardiogram for acute respiratory failure. For bronchitis, we are going to provide broad-spectrum antibiotics renally dosed. We are going to consult Pulmonary as well. We are going to check ABG daily and x-ray daily as well. For this liver cirrhosis with severe hepatic encephalopathy, I am not quite sure if this patient may have some esophageal varices. In any case will place an NG tube to provide medications in this case, rifaximin and lactulose. For acute renal failure, we are going to monitor her closely ins and outs. I will consult also Dr. Holcomb. We do not have any basal creatinine because we do not know the name of this patient. Also there was a remark that there was apparently a spleen injury noted in the CT of the abdomen, but the ER doctor consulted with General Surgery and he is not a candidate for any surgical approach at this time. Recommended to have just 2 units of blood transfusion. So, this patient is going to intensive care unit. CRITICAL CARE TIME: 75 minutes. cc: Neftali More MD MTDBrian
[2018-09-12] MEDS ORDERED: CALCIUM GLUCONATE 2 GM in NS 100 ML IV ONE (19:01)
[2018-09-12] MEDS ORDERED: ZOFRAN IV PRN (19:20)
[2018-09-12] MEDS: MERREM 500 MG in NS 50 ML IV SCH (20:11)
[2018-09-12] MEDS: ZYVOX 600 MG/D5W 600 MG/300 ML IVPB IV SCH (20:12)
[2018-09-12] MEDS: SODIUM CHLORIDE 0.9% INJ SCH (20:12)
[2018-09-12] MEDS: NEXIUM IV SCH (20:12)
[2018-09-12] MEDS: SOLU-MEDROL IV SCH (20:16)
[2018-09-12] MEDS: DUONEB (A & A) INH SCH ×2 (20:20→22:45)
[2018-09-12] MEDS ORDERED: SODIUM BICARBONATE 8.4% 150 MEQ in D5W 1,000 ML IV SCH (20:45)
[2018-09-12] MEDS: LACTULOSE NG SCH (20:56)
[2018-09-12] MEDS: XIFAXAN NG SCH (21:05)
[2018-09-12] MEDS: SODIUM BICARBONATE 8.4% 150 MEQ in D5W 1,000 ML IV SCH ×3 (21:06→23:45)
[2018-09-12] MEDS: HUMULIN R SUBQ SCH (21:11)
--- NOTE | 2018-09-12 21:51 | Diag Imaging Result Doc PS360 ---
EXAM: CHEST-PORTABLE INDICATION: NG placement TECHNIQUE: One view COMPARISON: 09/12/2018 FINDINGS: The newly placed NG tube tip projects below the diaphragm and is assumed to be in the lumen of the stomach in the expected position. Limited views of the chest are approximately stable. IMPRESSION: Interval placement of NG tube in expected position as described. Electronically signed by Corby Wade 09/12/2018 9:49 PM
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
[2018-09-12] MEDS: LEVOPHED 8 MG in D5 1/2 NS 250 ML IV SCH (23:41)
[2018-09-12] MEDS: D5 NS 1,000 ML IV SCH (23:45)
[2018-09-13] MEDS: HUMULIN R SUBQ SCH ×3 (01:39→09:48)
[2018-09-13] MEDS: SOLU-MEDROL IV SCH ×3 (03:20→18:19)
[2018-09-13] MEDS: LEVOPHED 8 MG in D5 1/2 NS 250 ML IV SCH (03:20)
[2018-09-13] MEDS: DUONEB (A & A) INH SCH ×6 (03:31→23:05)
[2018-09-13 04:28] LABS: ALLEN TEST YES; BE -2.8 mmoll (-3.0-3.0); BLOOD TYPE ARTERIAL; HCO3-(ACT) 22.7 mmoll (20.0-26.0); METHB 1.2 % (0.0-1.5); O2(CT) 16.9 mL/dL (15.0-23.0); O2HB 96.9 % (95.0-99.0); PCO2(98.6) 28 mmHg (35-45); PO2(98.6) 150 mmHg (60-100); SAMPLE BLOOD; SAO2 99.5 % (95.0-100.0); SRATE 18 BPM; THB 12.2 g/dL (11.5-17.4); TVOL 700 mL; pH(98.6) 7.46 (7.35-7.45)
[2018-09-13 04:30] LABS: MODALITY VENTILATOR
[2018-09-13 04:50] LABS: INR 1.76; PROTIME 21.9 Seconds (11.0-16.0)
[2018-09-13 05:17] LABS: ALB/GLOB RATIO 0.6; ALBUMIN 2.1 g/dL (3.5-5.0); CREATININE 4.6 mg/dL (0.7-1.2); POTASSIUM 2.9 mmol/L (3.5-5.1); TOTAL BILIRUBIN 1.46 mg/dL (0.20-1.00); TOTAL PROTEIN 5.7 g/dL (6.3-8.3)
[2018-09-13 05:18] LABS: CALCIUM 5.2 mg/dL (8.8-10.2)
[2018-09-13] MEDS: D5 NS 1,000 ML IV SCH ×5 (05:20→23:54)
[2018-09-13] MEDS ORDERED: CALCIUM GLUCONATE 2 GM in NS 100 ML IV ONE ×2 (05:29→07:54)
[2018-09-13 06:11] LABS: HEMOGLOBIN 12.2 g/dL (14.0-18.0); RBC 3.91 XMIL (4.7-6.1); WBC 10.08 X1000 (4.8-10.8)
[2018-09-13 06:12] LABS: BASO# 0.01 X1000 (0.0-0.2); BASO% 0.1 % (0.0-0.8); EOS# 0.01 X1000 (0.0-0.7); EOS% 0.1 % (0.0-10.0); HEMATOCRIT 34.1 % (42.0-52.0); IMM GRAN# 0.03 X1000 (0.0-0.04); IMM GRAN% 0.3 % (0.0-0.5); MCH 31.2 PG (27-31); MCHC 35.8 g/dL (33-37); MCV 87.2 FL (81-99); MONO# 0.96 X1000 (0.11-0.59); MONO% 9.5 % (1.7-9.3); MPV 11.3 FL (7.4-10.4); NEUT# 8.57 X1000 (1.4-6.5); PLT 84 X1000 (130-400); RDW 16.6 % (11.5-14.5)
[2018-09-13] MEDS: NEXIUM IV SCH ×2 (06:30→18:19)
[2018-09-13] MEDS: SODIUM CHLORIDE 0.9% INJ SCH (06:31)
[2018-09-13] MEDS: MERREM 500 MG in NS 50 ML IV SCH ×2 (06:31→18:20)
[2018-09-13] MEDS: ZYVOX 600 MG/D5W 600 MG/300 ML IVPB IV SCH ×2 (06:31→18:20)
[2018-09-13 07:09] LABS: LYMPHS 5 % (21-51); MONO 9 % (1-9); SEGS 86 % (42-75)
[2018-09-13] MEDS ORDERED: POTASSIUM CHLORIDE 60 MEQ in NS 500 ML IV ONE (07:53)
--- NOTE | 2018-09-13 08:13 | EKG Report ---
Test Performed on : 09/12/2018 2:26:25 PM Test Reason : full arrest Blood Pressure : / mmHG Vent. Rate : 064 BPM Atrial Rate : 064 BPM P-R Int : 132 ms QRS Dur : 084 ms QT Int : 478 ms P-R-T Axes : 063 073 066 degrees QTc Int : 493 ms Normal sinus rhythm. Prolonged QT Abnormal ECG No previous ECGs available Unconfirmed Result
[2018-09-13] MEDS ORDERED: HUMULIN R 100 UNIT in NS 100 ML IV SCH (09:45)
[2018-09-13] MEDS: XIFAXAN NG SCH ×2 (09:47→21:19)
[2018-09-13] MEDS: LACTULOSE NG SCH ×2 (09:47→21:19)
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
[2018-09-13] MEDS: HUMULIN R 100 UNIT in NS 100 ML IV SCH (10:31)
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
--- NOTE | 2018-09-13 16:19 | Diag Imaging Result Doc PS360 ---
US ABDOMEN-COMPLETE - 09/13/2018 INDICATION: elevated liver enzymes COMPARISON: CT from 09/12/2018 FINDINGS: The liver is severely atrophic and nodular compatible with cirrhosis. There is a very small amount of ascites. The spleen is enlarged. Spleen size is 14.7 x 6.4 cm. Common bile duct measures 5 mm. Gallbladder is surgically absent. Both kidneys are normal. Aorta, IVC, and main portal vein are patent. IMPRESSION: Cirrhosis, splenomegaly, and ascites. Electronically signed by Emil Glaser 09/13/2018 4:17 PM
--- NOTE | 2018-09-13 18:07 | GASTROENTEROLOGY CONSULTATION ---
DATE: 09/13/2018 PRIMARY CARE PROVIDER: LILY Gonzalez REASON FOR CONSULTATION: Liver cirrhosis and hepatic encephalopathy. HISTORY OF PRESENT ILLNESS: Ms Banks is a 53-year-old male, who was admitted on 09/12/2018 after being found unresponsive. He underwent CPR in the field. He was noted to have agonal respirations when the EMS arrived. According to the records, one member of his family found him down, and EMS was called. He was noted to have a low blood sugar of 21 when EMS arrived. He has been on insulin and pain pills. He was admitted into the ICU, and he has been on mechanical ventilator an pressors as well as IV Levophed and IV fluids. As a part of the workup, he had imaging in the form of chest, abdomen, and pelvis CT which showed evidence of: 1. Bronchial mucosal thickening indicating bronchitis. 2. Fine reticulonodular infiltrates throughout both lungs, suggesting bronchiolitis. 3. Minimal scattered ground-glass opacities suggesting mild pneumonitis. 4. Cirrhotic liver. 5. Heterogeneous splenic enhancement with trace hyperdense fluid extending from the spleen and into the left paracolic gutter, likely representing trace hemorrhage, but no well-defined splenic laceration can be identified. 6. Heterogeneous enhancement of the kidney in a pattern of striated nephrogram more prominent on the right. This pattern is often associated with pyelonephritis. 7. A few fluid-filled loops of small bowel without significant distension and moderate distension of the stomach was noted. This is nonspecific and may represent a mild ileus. There has been prior cholecystectomy. The spleen is not enlarged. 8. Pancreas appears atrophic. Because of the abnormal CT scan, Gastroenterology consulted for evaluation of cirrhosis. All history obtained from the records as the patient is now unresponsive, and he is ventilated. PAST MEDICAL HISTORY: Diabetes and chronic pain. PAST SURGICAL HISTORY: Unknown. SOCIAL HISTORY: Unknown. FAMILY HISTORY: Unknown. REVIEW OF SYSTEMS: Cannot be obtained. MEDICATIONS IN THE HOSPITAL: Include: 1. Albuterol/ipratropium nebulizer. 2. Dextrose with normal saline at 200 mL/h. 3. Nexium b.i.d. IV. 4. He is on Humulin R drip. 5. Lactulose 30 mL per NG tube b.i.d., 6. Dextrose 5% half-normal with the Levophed drip. 7. Meropenem b.i.d. 8. Solu-Medrol 40 mg IV q.8 h. 9. Zofran 4 mg IV every 4 hours. 10. Xifaxan 550 mg p.o. b.i.d. 11. Linezolid 6 mg IV q.12 h. 12. Calcium gluconate. PHYSICAL EXAMINATION: Vital signs: Temperature 98.2 degrees, pulse rate 79, respiratory rate 18, blood pressure 112/74, saturating 100% on mechanical ventilator with FiO2 of 40%. General Appearance: Moderately built, moderately nourished, lying in bed, intubated and vented. HEENT: Positive ET tube. Positive NG tube. Mild pallor. Mild icterus. Neck: Supple. Abdomen: Soft, nondistended. No guarding. Extremities: No cyanosis, clubbing. Neurologic: He is unresponsive. DIAGNOSTIC STUDIES: His hemoglobin is 12.2, hematocrit 34.1, white count of 10.08, platelet count of 84,000. INR 1.76, PTT 21.9. ABG showing pH of 7.46, pCO2 of 28, PO2 of 158, this is on ventilator. Lactate of 4.7. Sodium 132, potassium 2.9, chloride of 89, bicarbonate of 18, anion gap 25, BUN of 16, creatinine 4.6, glucose of 480, calcium 5.2, phosphorus 6.3, magnesium 1.8, total bilirubin is 1.46, AST 419, ALT 188, alkaline phosphatase 160, total protein 5.7, albumin of 2.1. Ammonia of 103. CPK is 16,137, troponin 0.212. Urinalysis showing positive protein, positive glucose, positive blood, small leukocytes. Toxicology screen positive for oxycodone. Sputum culture showing gram-positive cocci. Stool for occult blood is positive. Urine culture showed no growth. Blood culture currently pending; 1/2 blood cultures is showing gram-positive cocci. CT scan as described in HPI. Chest x-ray showed interval NG tube in position. IMPRESSION AND PLAN: 1. Acute hypoxic respiratory failure, on ventilator. 2. Acute bronchitis. Patient is intubated. Pulmonary has been consulted. He has been on antibiotics with Zyvox and meropenem. He is also getting DuoNeb every 4 hours. 3. Possible cirrhosis of the liver of unclear etiology. We will check hepatitis panel, ALISIA, and ultrasound of the abdomen. We will check chronic liver disease workup. 4. Hepatic encephalopathy. We will continue on lactulose and Xifaxan. 5. Acute kidney injury secondary to rhabdomyolysis. He is on IV fluids and pressors. 6. Positive blood culture for gram-positive cocci. He is on broad-spectrum antibiotics. 7. Possible sepsis. He is on Levophed and IV fluids and IV antibiotics. 8. Diabetes. He was found to be hypoglycemic by EMS. This is being managed by the primary care team. 9. Post cardiac arrest. Troponins elevated. Cardiology has been consulted. 10. Gastrointestinal prophylaxis with Nexium twice daily. 11. Positive Hemoccult. We will continue to follow. 12. Mild anemia. Continue to follow. 13. Elevated liver enzymes. It could be ischemic liver injury. We will need to follow liver enzymes. We will follow up with chronic liver workup. The above plans were discussed with the patient's nurse at bedside and all of her questions were answered. Please call us with any further questions. cc: MD Neftali Yen MD Anna M. Dumas, CRNP MTDD
[2018-09-13 18:49] LABS: URINE SOURCE CATH
[2018-09-13 19:01] LABS: BILIRUBIN URINE NEGATIVE (NEGATIVE); BLOOD URINE LARGE (NEGATIVE); COLOR YELLOW; GLUCOSE URINE 200 mg/dL (NEGATIVE); KETONE URINE NEGATIVE (NEGATIVE); LEUKOCYTES URINE NEGATIVE (NEGATIVE); NITRITE URINE NEGATIVE (NEGATIVE); PH URINE 5.5; PROTEIN URINE 30 mg/dL (NEGATIVE); SP GRAVITY URINE 1.024; TURBIDITY URINE CLEAR (CLEAR); UROBILINOGEN URINE NORMAL (NORMAL)
--- NOTE | 2018-09-13 19:02 | CONSULTATION ---
DATE OF CONSULTATION: 09/13/2018 IMPRESSION: 1. Cardiopulmonary arrest. Patient reportedly found with agonal respirations and with pulse, requiring intubation in the field. 2. Cirrhosis probably related to alcohol. 3. Heavy chronic alcohol use in the past. It is not clear whether the patient is continuing to use alcohol. 4. Chronic back disorder with chronic opioid use. Drug screen positive for opioids. 5. Type 2 diabetes mellitus. 6. Rhabdomyolysis. 7. Hypovolemic. 8. History of hypertension. RECOMMENDATIONS: 1. Continue supportive care. 2. Agree with intravenous volume replacement. 3. Echocardiography. 4. Prognosis appears to be poor. HISTORY: This 53-year-old, white male with past history of heavy chronic alcohol abuse, cirrhosis, type 2 diabetes mellitus, hypertension, hyperlipidemia, and chronic back disorder for which he takes opioids was reportedly found down for an unknown length of time. He reportedly had agonal respirations and had a pulse. He was resuscitated in the field and required intubation. He has been admitted to the intensive care unit. He is on no sedation but remains unresponsive. There is no family available. He is on some intravenous pressors and is also receiving intravenous volume replacement. PAST MEDICAL HISTORY: 1. Cirrhosis. 2. Heavy chronic alcohol abuse. 3. Chronic back disorder with chronic opioid use. 4. Type 2 diabetes mellitus with insulin dependence. 5. Hypertension. 6. Hyperlipidemia. PAST SURGICAL HISTORY: Includes laparoscopic cholecystectomy, unspecified lumbar spine surgery, unspecified right knee surgery, and multiple unspecified left knee surgical procedures. ALLERGIES: No known drug allergies. MEDICATIONS PRIOR TO ADMISSION: As listed. 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 He has history of chronic cigarette use at a rate of 1/2 to 1 pack of cigarettes per day. He has history of chronic heavy alcohol use, but reportedly has discontinued this according to medical records. FAMILY HISTORY: Negative for premature coronary disease and positive for cirrhosis as well as gastric cancer. REVIEW OF SYSTEMS: Review of systems not reliably obtainable given patient's unresponsive state. PHYSICAL EXAMINATION: General: This is a thin, unresponsive, middle-aged male, on ventilator. Vital signs: Blood pressure 112/74, heart rate 79, oxygen saturation 100%. HEENT Exam: Noteworthy for bitemporal wasting. Mucous membranes are dry. Neck: Supple without discernible jugular distention. There are no carotid bruits. Chest: Clear to auscultation. Cardiac Exam: Reveals a regular rate and rhythm without appreciable murmur or gallop. Abdomen: It is soft. Bowel sounds are audible. Extremities: Without edema. PERTINENT DATA: Twelve lead EKG demonstrates sinus rhythm and borderline prolonged QT interval. LABORATORY DATA: Includes a white blood cell count 10.08, hematocrit 34.1, hemoglobin 12.2, platelet count 84,000. Sodium 132, potassium 2.9. Chloride 89, carbon dioxide 18, BUN 68, creatinine 4.6. Glucose 480. AST 419, ALT 188. Alkaline phosphatase 163. CPK 16,342 and followup CPK 16,137. CPK/MB 235.8, CPK MB index 1.4. Troponin T 0.341 with follow-up troponin T 0.212. Albumin 2.1. Urine drug screen positive for oxycodone. cc: Jaxon Blanc MD
[2018-09-13 19:03] LABS: UR EPITHELIAL CELLS <10 /HPF (<10); URINE BACTERIA NEGATIVE /HPF; URINE WBC <10 /HPF (<10)
[2018-09-13 19:13] LABS: URINE CASTS NONE SEEN; URINE CRYSTALS NONE SEEN; URINE SMALL ROUND CELLS NONE SEEN; URINE YEAST PRESENT
[2018-09-13 19:26] LABS: UR CREAT RANDOM 92.6 mg/dL (14-26); UR PROT RANDOM 34.7 mg/dL; UR SODIUM < 10 mmoll
[2018-09-13] MEDS ORDERED: D50W SYRINGE IV ONE (22:32)
[2018-09-14] MEDS: DUONEB (A & A) INH SCH ×6 (03:19→23:17)
[2018-09-14] MEDS: SOLU-MEDROL IV SCH ×3 (03:26→19:42)
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
[2018-09-14 04:28] LABS: ALLEN TEST YES; BE -1.2 mmoll (-3.0-3.0); BLOOD TYPE ARTERIAL; METHB 1.1 % (0.0-1.5); O2(CT) 15.1 mL/dL (15.0-23.0); O2HB 96.5 % (95.0-99.0); PCO2(98.6) 30 mmHg (35-45); PO2(98.6) 121 mmHg (60-100); SAMPLE BLOOD; SAO2 99.2 % (95.0-100.0); SRATE 18 BPM; TVOL 700 mL; pH(98.6) 7.47 (7.35-7.45)
[2018-09-14 04:29] LABS: MODALITY VENTILATOR
[2018-09-14] MEDS: D5 NS 1,000 ML IV SCH ×6 (04:37→21:57)
[2018-09-14 06:01] LABS: INR 1.39; PROTIME 18.1 Seconds (11.0-16.0)
[2018-09-14 06:23] LABS: EOS# 0.01 X1000 (0.0-0.7); EOS% 0.2 % (0.0-10.0); HEMATOCRIT 29.5 % (42.0-52.0); HEMOGLOBIN 10.6 g/dL (14.0-18.0); IMM GRAN# 0.03 X1000 (0.0-0.04); IMM GRAN% 0.5 % (0.0-0.5); LYMPH# 0.77 X1000 (1.2-3.4); LYMPH% 12.4 % (20.5-51.1); MCH 31.2 PG (27-31); MCHC 35.9 g/dL (33-37); MCV 86.8 FL (81-99); MONO# 0.56 X1000 (0.11-0.59); MPV 11.1 FL (7.4-10.4); NEUT# 4.82 X1000 (1.4-6.5); NEUT% 77.9 % (42.2-75.2); PLT 57 X1000 (130-400); RDW 16.8 % (11.5-14.5); WBC 6.19 X1000 (4.8-10.8)
[2018-09-14 06:34] LABS: ALB/GLOB RATIO 0.6; ALBUMIN 1.9 g/dL (3.5-5.0); CALCIUM 7.1 mg/dL (8.8-10.2); CREATININE 3.4 mg/dL (0.7-1.2); TOTAL BILIRUBIN 0.79 mg/dL (0.20-1.00); TOTAL PROTEIN 5.3 g/dL (6.3-8.3)
[2018-09-14 06:38] LABS: POTASSIUM 2.5 mmol/L (3.5-5.1)
--- NOTE | 2018-09-14 07:33 | Diag Imaging Result Doc PS360 ---
EXAM: CHEST-PORTABLE INDICATION: respiratory failure TECHNIQUE: One view COMPARISON: 09/12/2018 FINDINGS: Support tubes and lines are in stable positions. No new consolidations are identified. There may be mild pulmonary venous congestion. Cardiac silhouette is stable. IMPRESSION: Possible mild pulmonary venous congestion. Electronically signed by Corby Wade 09/14/2018 7:31 AM
[2018-09-14] MEDS: HUMULIN R 100 UNIT in NS 100 ML IV SCH (07:49)
--- NOTE | 2018-09-14 07:51 | ECHO REPORT ---
ORDER DATE: 09/12/2018 INTERPRETING PHYSICIAN: Rogelio Reno MD. INDICATIONS: Possibly cardiac arrest. M-MODE MEASUREMENTS: Left ventricle end diastole: 3.4 cm. Left ventricle end systole: 2.2 cm. Posterior wall: 1.2 cm. Interventricular septum: 1.3 cm. Left atrium: 4.0 cm. Aortic diameter: 3.5 cm. SUMMARY OF 2-DIMENSIONAL IMAGIN. The left ventricle is hyperdynamic. Ejection fraction appears to be in the order of 75%. 2. Optison was added to optimize visualization of endocardium, however, the chamber is really small and the ventricle is really very hyperdynamic. 3. The aortic valve shows normal opening. The mitral valve shows some calcification of the annulus. Color flow mapping of the aortic and mitral valve is unremarkable. 4. There is no pericardial effusion. 5. The inferior vena cava is not dilated. 6. The pulse wave Doppler of mitral inflow shows reversal of E/A ratio. 7. Tissue Doppler averages 9 cm. 8. There is no diastolic dysfunction. 9. The tricuspid valve shows no significant regurgitation. 10.Pulmonary pressure is probably normal. SUMMARY: This echocardiographic study reveals: 1. Hyperdynamic left ventricle, ejection fraction estimated at 75%. 2. No pulmonary hypertension. 3. No evidence of significant valvular disease. 4. No diastolic dysfunction. 5. The study would not be consistent with cardiac arrest of ischemic etiology. cc: MD Neftali Hernandez MD
[2018-09-14] MEDS: MERREM 500 MG in NS 50 ML IV SCH ×2 (07:59→19:41)
[2018-09-14] MEDS: LACTULOSE NG SCH ×2 (08:00→20:00)
[2018-09-14] MEDS: XIFAXAN NG SCH ×2 (08:00→20:00)
[2018-09-14] MEDS: NEXIUM IV SCH ×2 (08:00→19:41)
--- NOTE | 2018-09-14 08:00 | EKG Report ---
Test Performed on : 09/14/2018 07:44:02 AM Test Reason : cardiac arrest Blood Pressure : / mmHG Vent. Rate : 067 BPM Atrial Rate : 067 BPM P-R Int : 132 ms QRS Dur : 094 ms QT Int : 402 ms P-R-T Axes : 050 057 087 degrees QTc Int : 424 ms Normal sinus rhythm. Low voltage QRS Nonspecific T wave abnormality Abnormal ECG When compared with ECG of 31-OCT-2010 06:41, Nonspecific T wave abnormality now evident in Inferior leads Nonspecific T wave abnormality now evident in Anterolateral leads Confirmed by Bang Albrecht MD ([id number]) on 09/15/2018 6:21:03 PM
[2018-09-14] MEDS: POTASSIUM CHLORIDE 60 MEQ in NS 500 ML IV SCH ×2 (08:05→16:19)
[2018-09-14] MEDS: ZYVOX 600 MG/D5W 600 MG/300 ML IVPB IV SCH ×2 (08:46→19:42)
[2018-09-14] MEDS: ALBUMIN 25% IV SCH ×2 (11:03→17:25)
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
[2018-09-14 14:13] LABS: HEPATITIS PROFILE ACUTE SEE COMMENTS
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
--- NOTE | 2018-09-14 20:25 | PROGRESS NOTE ---
DATE: 09/14/2018 SUBJECTIVE: Patient continues on ventilator and poorly responsive. He is no longer on Levophed. OBJECTIVE: Vital signs: Blood pressure 144/87, heart rate 63, oxygen saturation 100% on ventilator. Neck: Jugular distention cannot be appreciated. Respiratory: Auscultation of the chest reveals scattered rhonchi. Cardiac Exam: Reveals a regular rate and rhythm without appreciable murmur or gallop. Extremities: Without edema. Neurologic: Reveals him to be unresponsive. LABORATORY DATA: Includes a white blood cell count of 6.19, hematocrit 29.5, hemoglobin 10.6, platelet count 57. Protime 18.1, INR 1.39. Sodium 140, potassium 2.5, chloride 104, carbon dioxide 21, BUN 62, creatinine 3.4. Glucose 99, AST 228, ALT 144, alkaline phosphatase 155, CPK 4617, albumin 1.9. Echocardiography reports left ventricular ejection fraction of 75%. IMPRESSION: 1. Status post arrest, acute hypoxic respiratory failure. 2. Septic shock. 3. Rhabdomyolysis. 4. Encephalopathy, significant. 5. Acute renal failure. 6. Cirrhosis. 7. History of heavy alcohol use in the past. It is unclear if patient has continued to use alcohol. 8. Chronic back disorder with chronic opioid use. 9. Type 2 diabetes mellitus. 10. Hypertension. RECOMMENDATIONS: 1. Continue supportive care and parenteral antibiotics as you are doing. 2. No additional cardiovascular suggestions at this point. I suspect his arrest was not a primary cardiac event. I will see further on an as needed basis. cc: Jaxon Blanc MD
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
[2018-09-14] MEDS ORDERED: LASIX IV ONE (21:41)
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
[2018-09-15] MEDS: SOLU-MEDROL IV SCH ×3 (03:08→18:24)
[2018-09-15] MEDS: DUONEB (A & A) INH SCH ×6 (03:29→23:04)
[2018-09-15] MEDS: D5 NS 1,000 ML IV SCH ×2 (03:52→08:49)
[2018-09-15 04:58] LABS: BLOOD TYPE ARTERIAL; SAMPLE BLOOD; pH(98.6) 7.47 (7.35-7.45)
[2018-09-15 04:59] LABS: HEMATOCRIT 31.5 % (42.0-52.0); IMM GRAN% 0.6 % (0.0-0.5); LYMPH# 0.58 X1000 (1.2-3.4); LYMPH% 9.1 % (20.5-51.1); MCHC 34.9 g/dL (33-37); MCV 88.7 FL (81-99); MONO% 7.9 % (1.7-9.3); MPV 10.2 FL (7.4-10.4); NEUT# 5.24 X1000 (1.4-6.5); NEUT% 82.4 % (42.2-75.2); PLT 40 X1000 (130-400); RBC 3.55 XMIL (4.7-6.1); RDW 17.9 % (11.5-14.5); WBC 6.36 X1000 (4.8-10.8)
[2018-09-15 04:59] LABS: HCO3-(ACT) 21.6 mmoll (20.0-26.0); PCO2(98.6) 29 mmHg (35-45); PO2(98.6) 144 mmHg (60-100)
[2018-09-15 05:00] LABS: MODALITY VENTILATOR
[2018-09-15 05:00] LABS: IMM GRAN# 0.04 X1000 (0.0-0.04)
[2018-09-15 05:01] LABS: ALLEN TEST YES; SRATE 18 BPM; TVOL 700 mL
[2018-09-15 05:01] LABS: ALB/GLOB RATIO 0.8; ALBUMIN 2.5 g/dL (3.5-5.0); CALCIUM 8.5 mg/dL (8.8-10.2); CREATININE 2.7 mg/dL (0.7-1.2); POTASSIUM 3.1 mmol/L (3.5-5.1); TOTAL BILIRUBIN 1.08 mg/dL (0.20-1.00); TOTAL PROTEIN 5.7 g/dL (6.3-8.3)
--- NOTE | 2018-09-15 05:10 | PULMONOLOGY PROGRESS NOTE ---
DATE: 09/14/2018 SUBJECTIVE: Patient remains poorly responsive. Nurse reports he does move his feet minimally. Blood pressure continues to improve. OBJECTIVE: Vital signs: Blood pressure 146/86, heart rate 65, respiratory rate 15, oxygen saturation 100%. HEENT: Pupils are equal and reactive. Oropharynx is clear. Neck: Supple. Chest: Reveals good air entry bilaterally with occasional rhonchi. No wheezing. No tactile fremitus. Cardiac: S1 and S2. Abdomen: Soft. Extremities: Less rigid in yesterday. LABORATORIES: White blood count 6.19, hemoglobin 10.6, platelet count 57,000. Sodium 140, potassium 2.5, chloride 104, bicarbonate 21, anion gap 15, BUN 62, creatinine 3.4, AST 228, ALT 144. Creatine kinase 416. Albumin 1.9. Arterial blood gas, pH 7.47, pCO2 of 30, pO2 of 121. IMPRESSION: A 53-year-old with 1. Acute hypoxemic respiratory failure. 2. Rhabdomyolysis. 3. Acute renal failure. 4. Altered mental status. 5. Cirrhosis with elevated ammonia level. 6. Septic shock, which has resolved. 7. Severe hyperglycemia, which has improved on insulin drip. PLAN: 1. Begin weaning volume resuscitation as blood pressure continues to improve. 2. Continue broad-spectrum antibiotics pending results of blood culture data, which is still in progress. 3. Consider repeat CT scan of the brain tomorrow if mental status does not improve. The patient presented with significant hypoglycemia and this may be a hypoglycemic-induced coma. TIME SPENT: In critical care management 30+ minutes. cc: Shin Murillo MD
[2018-09-15 05:53] LABS: INR 1.35; PROTIME 17.7 Seconds (11.0-16.0)
[2018-09-15] MEDS: NEXIUM IV SCH ×3 (06:04→18:24)
[2018-09-15] MEDS: ZYVOX 600 MG/D5W 600 MG/300 ML IVPB IV SCH ×3 (06:04→18:24)
[2018-09-15] MEDS: MERREM 500 MG in NS 50 ML IV SCH ×3 (06:05→18:24)
--- NOTE | 2018-09-15 07:01 | Diag Imaging Result Doc PS360 ---
EXAM: CHEST-PORTABLE 09/15/2018 HISTORY: respiratory failure TECHNIQUE: AP portable at 0520 COMMENT: There is an endotracheal tube with its tip at thoracic inlet and an NG tube with its tip below the diaphragm. The inspiration is slightly less optimal than on 09/14/2018. There continues to be a vague hazy opacity over both lungs. IMPRESSION: Mild pulmonary edema. Electronically signed by Zeke Rm 09/15/2018 6:59 AM
[2018-09-15] MEDS ORDERED: POTASSIUM CHLORIDE 60 MEQ in NS 500 ML IV ONE (08:29)
[2018-09-15] MEDS: LACTULOSE NG SCH ×2 (08:49→20:33)
[2018-09-15] MEDS: XIFAXAN NG SCH ×2 (08:50→20:33)
[2018-09-15] MEDS: HUMULIN R 100 UNIT in NS 100 ML IV SCH (10:15)
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
[2018-09-15 11:10] LABS: ALLEN TEST YES; BLOOD TYPE ARTERIAL; HCO3-(ACT) 22.6 mmoll (20.0-26.0); METHB 1.1 % (0.0-1.5); O2(CT) 14.5 mL/dL (15.0-23.0); O2HB 96.2 % (95.0-99.0); PCO2(98.6) 28 mmHg (35-45); PO2(98.6) 104 mmHg (60-100); SAMPLE BLOOD; SAO2 98.8 % (95.0-100.0); THB 10.6 g/dL (11.5-17.4); pH(98.6) 7.46 (7.35-7.45)
[2018-09-15 11:11] LABS: MODALITY VENTILATOR
[2018-09-15] MEDS ORDERED: D50W SYRINGE IV PRN (11:48)
--- NOTE | 2018-09-15 14:18 | Diag Imaging Result Doc PS360 ---
EXAM: CT HEAD W/O CONTRAST INDICATION: anoxic encephalopathy suspected TECHNIQUE: This exam was performed using automated exposure control, adjustment of mA or kV according to patient size, and/or use of iterative reconstruction technique. COMPARISON: 09/12/2018 FINDINGS: There is no definite acute infarct given the limited sensitivity of CT versus MRI. There is no evidence of significant cerebral edema. There is no discrete intracranial mass, mass effect, or intracranial hemorrhage. The surrounding soft tissues and bony structures are essentially unremarkable. IMPRESSION: No evidence of acute intracranial pathology by CT. Electronically signed by Corby Wade 09/15/2018 2:16 PM
--- NOTE | 2018-09-15 14:36 | NEPHROLOGY PROGRESS NOTE ---
DATE: 09/15/2018 SUBJECTIVE: He remains sedated on the ventilator. OBJECTIVE: Vital Signs: Blood pressure 148/90, heart rate 67, respirations 14, afebrile. Generally: No acute distress. Skin: Warm and dry. Conjunctivae are pink. Neck: Neck veins are not distended. Heart: Regular. Lungs: Equal. Abdomen: Soft. Extremities: Have no edema, clubbing or cyanosis. IMPRESSION: Acute kidney injury. Good urine output. Creatinine 2.7 today. Continuing to improve. He does have hypokalemia and mild metabolic acidosis. He has received IV potassium per the primary team. No changes. cc: Daniel Holcomb MD
--- NOTE | 2018-09-15 14:52 | PULMONOLOGY PROGRESS NOTE ---
DATE: 09/15/2018 SUBJECTIVE: The patient is on mechanical ventilation. He does move his feet with stimulation, but does not move upper extremities despite painful stimulation. OBJECTIVE: Vital Signs: The patient has been afebrile for the last 24 hours. Blood pressure 157/95, heart rate 73, respiratory rate 16, oxygen saturation 117. HEENT: Pupils are equal. Oropharynx appears clear. Neck: Supple. Chest: Reveals crackles in both lung bases. Cardiac exam: Regular rate. Normal S1, S2. Abdomen: Soft. Extremities: Reveal increasing edema. LABORATORIES: Sodium 145, potassium 3.1, chloride 111, bicarbonate 19. BUN 54, creatinine 2.7, glucose 96, bilirubin 1.08. AST 152, ALT 111, alkaline phosphatase 160, creatine kinase 1686. IMPRESSION: A 53-year-old with: 1. Acute hypoxemic respiratory failure. 2. Rhabdomyolysis. 3. Acute renal failure. 4. Cirrhosis. 5. Episode of hypoglycemia with ongoing altered mental status. 6. Hyperchloremic metabolic acidosis. PLAN: 1. We will initiate spontaneous breathing trial, but extubation may be limited due to mental status. 2. Continue broad-spectrum antibiotics. 3. Repeat CT scan of the brain. 4. Change fluids. Patient is becoming hypernatremic and hyperchloremic. See orders. TIME SPENT IN CRITICAL CARE MANAGEMENT: 30+ minutes. cc: Shin Murillo MD
[2018-09-15] MEDS: D5 1/2 NS 1,000 ML IV SCH (17:27)
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
[2018-09-16] MEDS: DUONEB (A & A) INH SCH ×6 (03:34→23:19)
[2018-09-16] MEDS: SOLU-MEDROL IV SCH ×3 (03:59→18:27)
[2018-09-16] MEDS: D5 1/2 NS 1,000 ML IV SCH ×2 (03:59→17:51)
[2018-09-16 04:37] LABS: BASO# 0.01 X1000 (0.0-0.2); BASO% 0.1 % (0.0-0.8); EOS# 0.03 X1000 (0.0-0.7); EOS% 0.4 % (0.0-10.0); HEMATOCRIT 32.8 % (42.0-52.0); HEMOGLOBIN 11.1 g/dL (14.0-18.0); IMM GRAN# 0.05 X1000 (0.0-0.04); IMM GRAN% 0.7 % (0.0-0.5); LYMPH# 0.58 X1000 (1.2-3.4); LYMPH% 7.9 % (20.5-51.1); MCH 30.6 PG (27-31); MCHC 33.8 g/dL (33-37); MCV 90.4 FL (81-99); MONO# 0.54 X1000 (0.11-0.59); MONO% 7.4 % (1.7-9.3); MPV 9.8 FL (7.4-10.4); NEUT% 83.5 % (42.2-75.2); PLT 42 X1000 (130-400); RBC 3.63 XMIL (4.7-6.1); RDW 18.3 % (11.5-14.5); WBC 7.31 X1000 (4.8-10.8)
[2018-09-16 04:39] LABS: INR 1.34; PROTIME 17.6 Seconds (11.0-16.0)
[2018-09-16 04:50] LABS: ALLEN TEST YES; BE -3.3 mmoll (-3.0-3.0); BLOOD TYPE ARTERIAL; HCO3-(ACT) 22.3 mmoll (20.0-26.0); METHB 1.3 % (0.0-1.5); O2(CT) 17.4 mL/dL (15.0-23.0); O2HB 94.6 % (95.0-99.0); PCO2(98.6) 29 mmHg (35-45); PO2(98.6) 86 mmHg (60-100); SAMPLE BLOOD; SAO2 97.6 % (95.0-100.0); pH(98.6) 7.44 (7.35-7.45)
[2018-09-16 04:52] LABS: ALB/GLOB RATIO 0.7; ALBUMIN 2.4 g/dL (3.5-5.0); CALCIUM 8.3 mg/dL (8.8-10.2); CALCIUM 8.4 mg/dL (8.8-10.2); CREATININE 2.3 mg/dL (0.7-1.2); CREATININE 2.5 mg/dL (0.7-1.2); PHOSPHORUS 4.9 mg/dL (2.7-4.5); POTASSIUM 3.9 mmol/L (3.5-5.1); TOTAL BILIRUBIN 0.98 mg/dL (0.20-1.00); TOTAL PROTEIN 5.8 g/dL (6.3-8.3)
[2018-09-16 05:03] LABS: MODALITY VENTILATOR
[2018-09-16] MEDS: SODIUM CHLORIDE 0.9% INJ SCH (06:14)
[2018-09-16] MEDS: NEXIUM IV SCH ×3 (06:14→18:27)
[2018-09-16] MEDS: MERREM 500 MG in NS 50 ML IV SCH ×2 (06:14→06:23)
[2018-09-16] MEDS: ZYVOX 600 MG/D5W 600 MG/300 ML IVPB IV SCH ×2 (06:15→06:23)
--- NOTE | 2018-09-16 07:36 | Diag Imaging Result Doc PS360 ---
EXAM: CHEST-PORTABLE INDICATION: respiratory failure TECHNIQUE: One view COMPARISON: 09/15/2018 FINDINGS: Support tubes and lines are in stable positions. There has been slight improvement of the mild pulmonary edema and pulmonary venous congestion seen on the previous study. No new consolidation is identified. Cardiac silhouette is stable. IMPRESSION: Interval slight improvement. Electronically signed by Corby Wade 09/16/2018 7:35 AM
[2018-09-16] MEDS: LACTULOSE NG SCH ×2 (08:28→20:14)
[2018-09-16] MEDS: XIFAXAN NG SCH ×2 (08:28→20:14)
[2018-09-16] MEDS ORDERED: APRESOLINE IV PRN (08:41)
[2018-09-16] MEDS: CUBICIN 600 MG in NS 100 ML IV SCH (08:49)
[2018-09-16] MEDS: LEVAQUIN 500 MG/D5W 500 MG/100 ML IVPB IV SCH (09:24)
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
--- NOTE | 2018-09-16 12:35 | NEPHROLOGY PROGRESS NOTE ---
DATE: 09/16/2018 SUBJECTIVE: The patient remains intubated, mechanically ventilated. He is on no sedation. OBJECTIVE: Vital Signs: Temperature 99 degrees, pulse 89, respiratory rate 16, blood pressure 152/99. Intake 3.3 L, output 1.5 L. However, the patient has significantly decreased urine output over the last 8 hours, with urine output declining down to about 125 mL over that time. General: This is a critically ill-appearing, middle-aged gentleman, currently mechanically ventilated. HEENT: Normocephalic, atraumatic. His pupils are equal, sluggish. Oral mucosa orally intubated. Neck: Supple. There is no JVD noted at this time. Cardiovascular: He has a controlled rate. Regular rhythm. Pulmonary: He has coarse rhonchi bilaterally. No wheeze. Remains mechanically ventilated. Abdomen: Hypoactive bowel sounds. : Kaplan catheter. Extremities: No clubbing, cyanosis, or edema at this time. LABORATORY DATA: WBC of 7.3, hemoglobin 11.1. Sodium 147, potassium 3.9, CO2 of 19, creatinine 2.3 (2.5). ASSESSMENT AND PLAN: 1. Acute kidney injury. He has had modest improvement since admission. However, urine output has dropped significantly over the last 12 to 24 hours. The patient has been appropriately fluid resuscitated since admission. Unclear causation. Nurse to scan the bladder. He did have some sediment noted. 2. Hypokalemia, acidosis. He has received repletion as appropriate. 3. Respiratory failure status post cardiopulmonary arrest. Followed by primary pulmonology. 4. Fluid volume. He is not overloaded at this time. He does not have any absolute indications in the form of dialysis today. We will continue to monitor him closely and make decisions on a daily basis. Dictated by LILY Villagran for Daniel Holcomb MD Face to face encounter, data reviewed, discussed with Marques Callahan on 09/16/18. I agree with the above assessment and plan of care. cc: Daniel Holcomb MD [facility]
[2018-09-16] MEDS: HUMULIN R 100 UNIT in NS 100 ML IV SCH (14:42)
--- NOTE | 2018-09-16 14:55 | CONSULTATION ---
DATE OF CONSULTATION: 09/16/2018 HISTORY: Mr. Banks is 53 years old, and he was reportedly found unresponsive. I have not interviewed family or taken first-hand history. I have reviewed the history recorded in the hospital chart. There are some inconsistencies in some of the reports provided by family. Report is that he was found unresponsive and EMS was summoned. He was intubated in the field and transported to the hospital. He has continued intubated and mechanically ventilated. He has not received heavy sedative medicine here. There is report that he was hypoglycemic in the field. There was blood sugar recorded 21 on presentation here 4 days ago. There is report that he had access to insulin and to numerous medications. The list of home medicines in the computer includes duloxetine, gabapentin, ondansetron, oxycodone ER and oxycodone IR among the medications that might have significant [employer] effect. Urine drug screen was positive only for oxycodone on presentation. There is reported past history of alcohol abuse and baseline cirrhosis, diabetes mellitus. Initial serum ethanol level was none detected. Initial AST was over 400, down to 105 today. Initial ALT was 180, down to 89 today. Alkaline phosphatase has been stable 150s-190s. Initial ammonia was over 400, down to 36 today. There was mild hyponatremia initially which was corrected. Initial BUN was 71, down to 58 today. Computer record shows baseline BUN's have been normal prior to this admission. Imaging includes initial noncontrast CT of the head 09/12/2018 and follow-up CT without contrast 09/15/2018 both unremarkable. On exam, Mr. Banks is supine, intubated, mechanically ventilated. There is random conjugate eye movement and tendency to down gaze. I did not find definite ocular bobbing or significant nystagmus. There is full lateral and vertical eye movement with passive head turning. Corneal reflexes are present. Pupils react to bright light. Facial motility appears symmetric. I did not see voluntary or spontaneous movement in the limbs. With noxious stimulation, there was extension and rotation of the right arm, but not the left. Plantar response is silent bilaterally. Neck is supple. IMPRESSION: Coma, uncertain etiology. Possibilities are persistent encephalopathy following hypoglycemic or anoxic/ischemic event, intoxication with opiate and/or other substance, alcohol withdrawal. He might have had seizure prior to being discovered. There is likely hepatic encephalopathy contributing to the clinical picture. I do not have any urgent suggestion from Neurology standpoint. Depending on his clinical course, we might plan EEG and eventually might need to consider repeat brain imaging. Thanks for asking Neurology to see Mr. Banks. cc: MD RATNA Celeste III
--- NOTE | 2018-09-16 16:47 | GASTROENTEROLOGY PROGRESS NOTE ---
DATE: 09/16/2018 SUBJECTIVE: Patient resting. The patient is currently intubated and on the ventilator. He is nonverbal. He is in a comatose state. He does not open up his eyes. He is not on any sedatives, and Despite that, he has not had return of neurological function. Neurology consult has been placed, and they plan to do EEG. I spoke to the patient's nurse at bedside. The patient has been having liquid brown stools. No documented blood in the stools. OBJECTIVE: Vital signs: Temperature 98.2 degrees, pulse rate of 85, respiratory rate of 17, blood pressure 150/93, saturating 100% on mechanical ventilator with FiO2 of 30%. Weight: His body weight of 179 pounds 4.8 ounces. BMI 25 kg/m2. General Appearance: The patient is moderately built and nourished, lying in bed, in no acute distress. HEENT: Positive ET tube. Positive NG tube. Pupils dilated. Neck: Supple. Abdomen: Soft, nondistended. No guarding. Extremities: No cyanosis or clubbing. Neurological: He is intubated and on the ventilator. He does not open his eyes on commands. DIAGNOSTIC STUDIES: Hemoglobin is 11.1, hematocrit 32.8, white count of 7.31, platelet count of 42. INR 1.34, PT of 17.6. ABG showing pH of 7.44, pCO2 of 29, PO2 of 86, this is on ventilator at 30% FiO2. Sodium 143, potassium 3.9, chloride 113, bicarbonate 19, anion gap of 14, BUN of 58, creatinine, glucose of 160, calcium is 8.4, phosphorus 4.9, total bilirubin is 0.98, AST 105, ALT 89, alkaline phosphatase 190, total protein is 5.8, albumin of 2.4. Ammonia of 36, which is now normal. Creatine kinase is 77. ALISIA is negative. Antimitochondrial antibody is negative. Antismooth muscle antibody is negative. Hepatitis panel is nonreactive. Sputum culture showing Staphylococcus aureus and Klebsiella pneumoniae. Urine culture showing Streptococcus agalactiae Group B. Stool occult blood is positive. Blood culture has shown Staphylococcus aureus and Streptococcus agalactiae Group B. ASSESSMENT AND PLAN: 1. Alcoholic cirrhosis, decompensated with ascites. We will continue to follow the patient's labs closely including liver enzymes and INR. 2. Hepatic encephalopathy. His ammonia is now normal. He will continue on lactulose and Xifaxan. 3. Ascites. Noted on ultrasound. 4. Thrombocytopenia. We will continue to watch the platelet count and transfuse as needed. 5. Altered mental status. This is being evaluated by the Neurology team. The patient has been comatose since admission. 6. Hypoxic respiratory failure. He is on ventilatory support. This is managed by the Pulmonology team. 7. Rhabdomyolysis. He is getting IV fluids. 8. Acute kidney injury. Continue to watch for now. We will continue IV fluids. 9. Anemia. Continue to watch for now and transfuse as needed. 10. Staphylococcus aureus and Streptococcus agalactiae Group B bacteremia. He is on broad- spectrum antibiotics per the primary team. 11. Gastrointestinal prophylaxis with Nexium. 12. The patient's platelet count dropping. This could be a medication side effect. This needs to monitor closely by the primary care team. The above plan was discussed with the patient's nurse at bedside, and all questions were answered. Please call us with any further questions. cc: MD Neftali Yen MD Anna M. Dumas, CRNP MTDD
[2018-09-16] MEDS ORDERED: LASIX IV ONE (23:29)
--- NOTE | 2018-09-16 23:57 | PULMONOLOGY PROGRESS NOTE ---
DATE: 09/16/2018 SUBJECTIVE: The patient moves his feet and limited movement of his legs with stimulation. He has very limited of the upper extremities. He does not respond to pain. OBJECTIVE: Vital signs: The patient has been afebrile for the last 24 hours. Blood pressure 155/94, heart rate 78, respiratory rate 18, oxygen saturation 100%. HEENT: Pupils are equal. Oropharynx appears clear. Neck: Supple. Chest: Reveals good air entry bilaterally without wheezing or rhonchi. Cardiac: S1, S2. Abdomen: Soft. Extremities: Without edema. LABORATORIES: Arterial blood gas on CPAP, pH 7.44, pCO2 of 29, PO2 of 86. Sodium 146, potassium 3.9, chloride 113, bicarbonate 19, BUN 58, creatinine 2.3. White blood count 7.3, hemoglobin 11.1, platelet 42,000. Chest x-ray without acute infiltrates. He may have slight edema but this has diminished. Microbiology: 2 blood cultures are growing group B strep. Sputum cultures are growing Staph aureus and Klebsiella pneumoniae. IMPRESSION: 1. Acute hypoxemic respiratory failure. 2. Coma/encephalopathy. 3. Rhabdomyolysis with renal failure. 4. Cirrhosis. PLAN: 1. Continue ventilatory support pending improvement in mental status. 2. Continue current antibiotic regimen. 3. Agree with Neurology evaluation. 4. Consider changing fluids to D5W if he remains hypernatremic. TIME SPENT: Critical care management 30+ minutes. cc: Shin Murillo MD
[2018-09-17] MEDS: DUONEB (A & A) INH SCH ×6 (03:32→23:18)
[2018-09-17] MEDS: SOLU-MEDROL IV SCH ×3 (03:49→20:50)
[2018-09-17 04:46] LABS: ALLEN TEST YES; BE -3.4 mmoll (-3.0-3.0); BLOOD TYPE ARTERIAL; HCO3-(ACT) 22.2 mmoll (20.0-26.0); METHB 1.5 % (0.0-1.5); O2(CT) 16.3 mL/dL (15.0-23.0); O2HB 95.7 % (95.0-99.0); PCO2(98.6) 27 mmHg (35-45); PO2(98.6) 110 mmHg (60-100); SAMPLE BLOOD; SAO2 98.8 % (95.0-100.0); pH(98.6) 7.46 (7.35-7.45)
[2018-09-17 04:49] LABS: MODALITY VENTILATOR
[2018-09-17 05:45] LABS: BASO# 0.01 X1000 (0.0-0.2); BASO% 0.1 % (0.0-0.8); EOS# 0.01 X1000 (0.0-0.7); EOS% 0.1 % (0.0-10.0); HEMATOCRIT 33.1 % (42.0-52.0); HEMOGLOBIN 11.3 g/dL (14.0-18.0); IMM GRAN# 0.07 X1000 (0.0-0.04); IMM GRAN% 0.8 % (0.0-0.5); LYMPH# 0.73 X1000 (1.2-3.4); LYMPH% 8.6 % (20.5-51.1); MCH 30.9 PG (27-31); MCHC 34.1 g/dL (33-37); MCV 90.4 FL (81-99); MONO% 8.2 % (1.7-9.3); MPV 10.3 FL (7.4-10.4); NEUT# 7.01 X1000 (1.4-6.5); NEUT% 82.2 % (42.2-75.2); PLT 40 X1000 (130-400); RBC 3.66 XMIL (4.7-6.1); RDW 18.1 % (11.5-14.5); WBC 8.53 X1000 (4.8-10.8)
[2018-09-17 05:47] LABS: INR 1.33; PROTIME 17.5 Seconds (11.0-16.0)
[2018-09-17 06:02] LABS: ALB/GLOB RATIO 0.8; ALBUMIN 2.5 g/dL (3.5-5.0); CALCIUM 8.5 mg/dL (8.8-10.2); CREATININE 2.2 mg/dL (0.7-1.2); TOTAL BILIRUBIN 1.02 mg/dL (0.20-1.00); TOTAL PROTEIN 5.8 g/dL (6.3-8.3)
--- NOTE | 2018-09-17 07:13 | Diag Imaging Result Doc PS360 ---
EXAM: CHEST-PORTABLE INDICATION: respiratory failure TECHNIQUE: One view COMPARISON: 09/16/2018 FINDINGS: Support tubes and lines are in stable positions. Mild pulmonary venous congestion is stable to marginally improved. No new consolidation is identified. Cardiac silhouette is stable. IMPRESSION: Stable to marginal improvement as described. Electronically signed by Corby Wade 09/17/2018 7:11 AM
[2018-09-17] MEDS: D5 1/2 NS 1,000 ML IV SCH (07:16)
[2018-09-17] MEDS: CUBICIN 600 MG in NS 100 ML IV SCH (07:17)
[2018-09-17] MEDS: NEXIUM IV SCH ×2 (07:17→20:50)
[2018-09-17] MEDS: SODIUM CHLORIDE 0.9% INJ SCH (07:17)
[2018-09-17] MEDS: LEVAQUIN 500 MG/D5W 500 MG/100 ML IVPB IV SCH (08:00)
[2018-09-17] MEDS: LACTULOSE NG SCH ×2 (08:00→20:50)
[2018-09-17] MEDS: XIFAXAN NG SCH ×2 (08:00→20:50)
[2018-09-17] MEDS ORDERED: LASIX IV ONE (09:21)
[2018-09-17] MEDS ORDERED: D5W 1,000 ML IV SCH (09:30)
--- NOTE | 2018-09-17 10:20 | PROGRESS NOTE ---
DATE: 09/17/2018 SUBJECTIVE: Patient is to be sedated and intubated. He moves both lower extremities spontaneously. He said that everything is basically the same. No acute issues noted as per nursing staff overnight. OBJECTIVE: Vital Signs: Temperature 98.9 degrees, heart rate 86, respiratory rate 18, blood pressure 156/97 and O2 saturation 100% on mechanical ventilator at FiO2 30%. General: This is a chronically ill appearing 54-year-old male, lying in bed, in no acute distress. He is looking older than his stated age. HEENT: Head is normocephalic, atraumatic. Pupils equal, round, and reactive to light and accommodation. NG tube in place. Neck: No JVD noted. No carotid bruits. No lymphadenopathy. Cardiovascular: S1, S2 heard. No murmurs, gallops, or rubs. Regular rate and rhythm. Respiratory: Minimal coarse breath sounds still noted in both pulmonary bases. Patient not using any accessory muscles or having work of breathing. Abdomen: Soft, a little bit distended. Bowel sounds present. No organomegaly. Extremities: No clubbing, cyanosis, or edema. Peripheral pulses present in both legs. Skin: Excoriation apparently diaz distributed to the left arm, abdomen and chest wall. Neurological: Patient is sedated and intubated. LABORATORY DATA: White cell count 8.53, hemoglobin 11.3, hematocrit 33.1 and platelets 40,000 with INR 1.33. ABG shows pH 7.46 with pCO2 27, PO2 110. That sample was taken on ventilator CPAP mode with FiO2 30%. BMP reveals sodium 146. Potassium 4.0 creatinine 2.2 and BUN of 63. ASSESSMENT/PLAN: 1. Acute hypoxemic respiratory failure on ventilator. ABGs continues to shows good gas exchange, but unfortunately what is precluding us is still from extubation is his mental status. We will continue to monitor this patient closely. 2. Staphylococcus aureus/Streptococcus agalactiae bacteremia. The patient currently is on daptomycin and Levaquin. White cell count is normal. Patient is not spiking any fever. We will continue to monitor. 3. Acute kidney injury secondary to rhabdomyolysis. CK is getting better. Creatinine seem improved slightly from 2.3 to 2.2 today. At this point, we will continue with IV fluids. Continue to monitor. 4. Hypernatremia. We are going to start D5 on this patient. We will monitor BMP daily. 5. Liver cirrhosis with pneumonia. We will continue with lactulose and rifaximin to NG tube. 6. Shock likely hypovolemic. Blood pressure is completely back to normal. 7. Suspected anoxic encephalopathy. Neurology has been consulted. We will follow recommendations. 8. Nutritional status: We will start NG tube feedings today. 9. Disposition: We will continue to monitor this patient in the intensive care unit. cc: Neftali More MD MTDD
--- NOTE | 2018-09-17 11:26 | PROVIDER PROGRESS NOTE ---
Progress Note S: No acute overnight events. Patient remains comatose. Currently, NPO O: Last Vital Signs Temp 98.9 F 09/17/18 07:41 Pulse 88 09/17/18 10:32 Resp 21 09/17/18 10:32 BP 152/91 09/17/18 10:32 Pulse Ox 99 09/17/18 10:32 Height 5 ft 10 in Weight 180 lb 3.2 oz GEN: intubated, comatose HEENT: PERRL, anicteric, ET tube in place NECK: supple, no jvd CHEST: chest abrasion CV: RRR, no murmurs PULM: bilateral crackles, no wheezing ABD: obese, distended, BS present, minimal ascites EXT: skin tears, no edema NEURO: right gaze preference, no w/d to noxious stimuli in UEs, some w/d in lower extremities. No clonus or asterixis LABS: 09/17/18 09/17/18 09/17/18 04:25 04:25 04:25 WBC 8.53 Hgb 11.3 L Plt Count 40 L INR 1.33 pH pCO2 pO2 Lactate Sodium 146 H Potassium 4.0 Chloride 112 H Carbon Dioxide 19 L BUN 63 H Creatinine 2.2 H Total Bilirubin 1.02 H AST 91 H ALT 79 H Alkaline Phosphatase 208 H Creatine Kinase Total Protein 5.8 L Albumin 2.5 L 09/17/18 09/17/18 04:25 04:36 WBC Hgb Plt Count INR pH 7.46 H pCO2 27 L pO2 110 H Lactate 1.80 Sodium Potassium Chloride Carbon Dioxide BUN Creatinine Total Bilirubin AST ALT Alkaline Phosphatase Creatine Kinase 536 H Total Protein Albumin A/P: Mr. Martinez Marmolejo is a 53 year old man with probable ETOH cirrhosis, chronic back disorder with chronic opioid use who was found down at home unresponsive, hypoglycemic with agonal bleeding s/p bystander CPR and intubation in the field. He was found to have rhabdomyolysis, CELIA, GPC bacteremia, septic shock, hypovolemia, hypoxic respiratory failure, NSTEMI, and probable hepatic encephalopathy. His neurologic exam remains poor despite supportive treatment including empiric lactulose/rifaximin for PSE, antibiotics, and correction of metabolic derangements. Seen by neurology. I suspect anoxic brain injury. His LFTs have improved significantly and ammonia level has normalized. # ETOH cirrhosis: decompensated with ascites - Cirrhosis: as above, check LFTs daily - EV: no overt bleeding - Ascites: noted on US; avoid diuresis for now given CELIA and rhabdo - PSE: consider stopping lactulose/rifaxmin as PSE unlikely etiology of persistent AMS # AMS: suspect anoxic brain injury; neurology following - avoid sedating meds - replete lytes prn - recommend palliative care consult and family meeting to establish GOC # Hypoxic respiratory failure: improved on minimal vent settings; defer to mgmt to primary and pulmonary # Rhadomyolysis: improving # CELIA: from above; fluid resuscitation; improved; avoid nephrotoxins # Anemia/thrombocytopenia: noted # GPC bacteremia: on abx per primary # Shock: likely septic/hypovolemia: resolved; off pressors # FEN: primary is starting enteral nutrition No new recommendations except stopping lactulose/rifaximin as PSE unlikely to be responsible for persistent AMS. Prognosis is poor. Discussed with primary team. Will sign off. Please call with questions.
[2018-09-17] MEDS: D5W 1,000 ML IV SCH (12:06)
[2018-09-17] MEDS: HUMALOG SUBQ SCH ×3 (12:07→20:50)
--- NOTE | 2018-09-17 15:59 | NEPHROLOGY PROGRESS NOTE ---
DATE: 09/17/2018 SUBJECTIVE: He remains unresponsive on the ventilator. OBJECTIVE: Vital Signs: Blood pressure 148/94, heart rate 91, respirations 21, intake 3 L. Output 2.4 L. Physical Examination: No acute distress. Skin: Warm and dry. Neck: Neck veins are distended. Heart: Regular. Lungs: Equal. Abdomen: Soft, nontender. Bowel sounds present. Extremities: 2+ edema. No clubbing or cyanosis. IMPRESSION: Acute kidney injury. Urine output is acceptable. I will decrease his fluid intake to 50 mL/h but no other changes. Acid-base status is acceptable. Mild hypernatremia but we will continue his D5, just at a lower rate. cc: Daniel Holcomb MD
--- NOTE | 2018-09-17 16:46 | PROGRESS NOTE ---
DATE: 09/17/2018 SUBJECTIVE: Mr. Banks continues intubated, mechanically ventilated, unresponsive. OBJECTIVE: There is brisk movement with head turning and tilting. Gaze appears conjugate. Pupils react to light. Corneal reflexes are present. Limb tone is symmetric. With noxious stimulation, best motor response was decerebrate posturing more prominent with the right arm than the left. Plantar response is extensor bilaterally. IMPRESSION: Persistent global encephalopathy, lack of clinical recovery is a negative prognostic factor. Hypoxic/ischemic encephalopathy is a strong consideration. Initial noncontrast CT done 09/12/2018 did not show anything definite. Subsequent noncontrast CT on 09/15/2018 was unchanged and specifically did not show evidence of accumulating cerebral edema. We might consider another noncontrast CT, but I do not think that would slubber frame changer right now. There are not sedatives on board provided here. Effect of any sedating medication or other substance ingested prior to admission should be reduced now. He continues uremic. Other metabolic abnormalities are relatively more minor. I do not have any urgent suggestion. Thanks for asking Neurology to see Mr. Banks. cc: MD RATNA Celeste III
[2018-09-18] MEDS: HUMALOG SUBQ SCH ×6 (00:15→20:38)
[2018-09-18] MEDS: D5W 1,000 ML IV SCH ×2 (00:15→06:37)
[2018-09-18] MEDS: DUONEB (A & A) INH SCH ×6 (03:10→23:30)
[2018-09-18 04:16] LABS: ALLEN TEST YES; BE -3.2 mmoll (-3.0-3.0); BLOOD TYPE ARTERIAL; HCO3-(ACT) 22.4 mmoll (20.0-26.0); O2(CT) 19.8 mL/dL (15.0-23.0); O2HB 96.4 % (95.0-99.0); PCO2(98.6) 30 mmHg (35-45); PO2(98.6) 120 mmHg (60-100); SAMPLE BLOOD; THB 14.5 g/dL (11.5-17.4); pH(98.6) 7.43 (7.35-7.45)
[2018-09-18 04:17] LABS: MODALITY VENTILATOR
[2018-09-18 06:33] LABS: INR 1.53; PROTIME 19.5 Seconds (11.0-16.0)
--- NOTE | 2018-09-18 06:42 | Diag Imaging Result Doc PS360 ---
CHEST-PORTABLE - 09/18/2018 INDICATION: respiratory failure COMPARISON: 09/17/2018 FINDINGS: Support tubes are stable and in good position. Stable right hemidiaphragm elevation. No infiltrates or edema. Heart size is normal. IMPRESSION: No complication or change from prior. Electronically signed by Emil Glaser 09/18/2018 6:40 AM
[2018-09-18 06:59] LABS: PLT 34 X1000 (130-400)
[2018-09-18 07:00] LABS: ALB/GLOB RATIO 0.8; ALBUMIN 2.4 g/dL (3.5-5.0); CALCIUM 8.4 mg/dL (8.8-10.2); CREATININE 2.1 mg/dL (0.7-1.2); PHOSPHORUS 5.1 mg/dL (2.7-4.5); TOTAL BILIRUBIN 0.91 mg/dL (0.20-1.00); TOTAL PROTEIN 5.4 g/dL (6.3-8.3)
[2018-09-18 07:02] LABS: HEMATOCRIT 30.1 % (42.0-52.0); HEMOGLOBIN 10.2 g/dL (14.0-18.0); MCH 30.8 PG (27-31); MCHC 33.9 g/dL (33-37); MCV 90.9 FL (81-99); RBC 3.31 XMIL (4.7-6.1); RDW 17.7 % (11.5-14.5); WBC 5.53 X1000 (4.8-10.8)
[2018-09-18 07:03] LABS: IMM GRAN# 0.05 X1000 (0.0-0.04); IMM GRAN% 0.9 % (0.0-0.5); LYMPH# 0.52 X1000 (1.2-3.4); LYMPH% 9.4 % (20.5-51.1); MONO# 0.47 X1000 (0.11-0.59); MONO% 8.5 % (1.7-9.3); MPV 9.9 FL (7.4-10.4); NEUT# 4.49 X1000 (1.4-6.5); NEUT% 81.2 % (42.2-75.2)
[2018-09-18] MEDS: LEVAQUIN 500 MG/D5W 500 MG/100 ML IVPB IV SCH (08:12)
[2018-09-18] MEDS: LACTULOSE NG SCH (08:12)
[2018-09-18] MEDS: XIFAXAN NG SCH (08:12)
[2018-09-18] MEDS: NEXIUM IV SCH ×2 (08:13→20:39)
[2018-09-18] MEDS: CUBICIN 600 MG in NS 100 ML IV SCH (08:30)
[2018-09-18] MEDS: SOLU-MEDROL IV SCH ×2 (09:22→21:45)
--- NOTE | 2018-09-18 15:35 | PROGRESS NOTE ---
DATE: 09/18/2018 SUBJECTIVE: Patient continues to be intubated and comatose. He moves lower extremities spontaneously once in a while. No issues according to nursing staff overnight. OBJECTIVE: Vital Signs: Temperature 98.6 degrees, heart rate 81, respiratory rate 16, blood pressure 145/85, O2 saturation 98% with mechanical ventilator at FiO2 of 30%. General: This is a chronically ill-appearing, looking older than his stated age 54-year-old male, lying in bed, in no acute distress. HEENT: Head is normocephalic, atraumatic. Pupils equal, round, reactive to light and accommodation. There is an NG tube placed with tube feedings running. Neck: No JVD noted. No carotid bruits. No lymphadenopathy. No thyromegaly. Cardiovascular: S1, S2 heard. No murmurs, gallops, or rubs. Regular rate and rhythm. Respiratory: Minimal coarse breath sounds still noted in both pulmonary bases. Patient not using any accessory muscles or having work of breathing. Abdomen: Soft. A little bit distended. Bowel sounds present. No organomegaly. Extremities: No clubbing, cyanosis, or edema. Peripheral pulses present in both legs. Skin excoriation and apparently some diaz distributed on both arms, abdomen, and chest wall. Neurological: Patient is intubated but not sedated. Continues to be comatose. Sometimes he moves both lower extremities spontaneously. LABORATORY DATA: White cell count 5.53, hemoglobin 10.2, hematocrit 30.1, platelets 34,000 with ABG that shows pH 7.43, with pCO2 30, PO2 120, on ventilator FiO2 30%. Sodium 146. Creatinine 2.1 and glucose 263 with AST 67, ALT 68, ammonia from last 2 days was normal. ASSESSMENT AND PLAN: 1. Acute hypoxemic respiratory failure on ventilator. ABG continues to shows good gas exchange. Unfortunately the only thing that is precluding us from extubating this patient is his mental status. He persists to be profoundly comatose. We will continue to monitor this patient closely. Pulmonary is also following this patient. 2. Staphylococcus aureus/Streptococcus agalactiae bacteremia. We will continue with daptomycin and Levaquin. White cell count is normal. Patient is not spiking any fever. We will continue to monitor. 3. Acute kidney injury secondary to rhabdomyolysis. CK is almost back to normal. Creatinine is basically unchanged in comparing with the last 2 days. Creatinine day before yesterday was 2.3, yesterday was 2.2, and today is 2.1. I think he is getting close to his baseline creatinine. Urine output is fine. We will continue to monitor. Nephrology is following this patient. 4. Hyponatremia. We will continue with D5W on this patient. Also nephrology is helping managing fluids. 5. Liver cirrhosis with encephalopathy. The patient has been on lactulose and rifaximin by NG tube. The ammonia level was back to normal two days ago. Gastroenterology has been following this patient. They recommend to stop both medications. They signed off. They do not think this problem is the reason why this patient is persisting encephalopathic. 6. Shock likely hypovolemia resolved. 7. Suspected anoxic encephalopathy. We have done 2 CT scans of the head which basically did not show any cerebral edema. We will consider that almost all of his medical conditions are improving some and he persists to be encephalopathic, make us think about this condition Dr. Burt is following this patient. We will continue to monitor this patient closely. 8. Nutritional status. We will continue with NG tube feeding. 9. Diabetes mellitus type 2. We will continue with Accu-Cheks every 4 hours and sliding scale insulin as needed. 10. Disposition. We will continue to monitor this patient in intensive care unit. cc: Neftali More MD MTDD
[2018-09-18] MEDS: SODIUM CHLORIDE 0.9% INJ SCH (20:39)
[2018-09-19] MEDS: HUMALOG SUBQ SCH ×7 (00:52→23:22)
[2018-09-19] MEDS: D5W 1,000 ML IV SCH ×2 (01:25→20:58)
[2018-09-19] MEDS: DUONEB (A & A) INH SCH ×6 (03:30→23:30)
[2018-09-19 04:22] LABS: BLOOD TYPE ARTERIAL; SAMPLE BLOOD
[2018-09-19 04:23] LABS: ALLEN TEST YES; BE -1.3 mmoll (-3.0-3.0); METHB 1.1 % (0.0-1.5); O2(CT) 6.5 mL/dL (15.0-23.0); O2HB 97.2 % (95.0-99.0); PCO2(98.6) 30 mmHg (35-45); PO2(98.6) 144 mmHg (60-100); SAO2 99.9 % (95.0-100.0); THB 4.5 g/dL (11.5-17.4); pH(98.6) 7.48 (7.35-7.45)
[2018-09-19 04:24] LABS: MODALITY VENTILATOR
[2018-09-19 06:28] LABS: INR 1.4; PROTIME 18.2 Seconds (11.0-16.0)
[2018-09-19 06:55] LABS: EOS# 0.02 X1000 (0.0-0.7); EOS% 0.3 % (0.0-10.0); HEMATOCRIT 29.7 % (42.0-52.0); HEMOGLOBIN 10.1 g/dL (14.0-18.0); IMM GRAN# 0.05 X1000 (0.0-0.04); IMM GRAN% 0.8 % (0.0-0.5); LYMPH# 0.47 X1000 (1.2-3.4); LYMPH% 7.4 % (20.5-51.1); MCV 91.1 FL (81-99); MONO# 0.34 X1000 (0.11-0.59); MONO% 5.4 % (1.7-9.3); MPV 11.3 FL (7.4-10.4); NEUT# 5.43 X1000 (1.4-6.5); NEUT% 86.1 % (42.2-75.2); RBC 3.26 XMIL (4.7-6.1); RDW 17.6 % (11.5-14.5); WBC 6.31 X1000 (4.8-10.8)
[2018-09-19 06:56] LABS: PLT 35 X1000 (130-400)
--- NOTE | 2018-09-19 07:15 | Diag Imaging Result Doc PS360 ---
CHEST-PORTABLE - 09/19/2018 INDICATION: respiratory failure COMPARISON: 09/18/2018 FINDINGS: Support tubes are stable. Stable right hemidiaphragm elevation. No infiltrates or edema. Heart size remains normal. IMPRESSION: No change from prior. Electronically signed by Emil Glaser 09/19/2018 7:13 AM
--- NOTE | 2018-09-19 07:17 | NEPHROLOGY PROGRESS NOTE ---
DATE: 09/18/2018 SUBJECTIVE: No change. Remains unresponsive. OBJECTIVE: Vital Signs: Blood pressure 159/98, heart rate 78, respirations 16. Intake 800 mL. Output 900 mL. Physical Examination: Unchanged. There is 1+ edema. IMPRESSION: Acute kidney injury. Slow but progressive improvement. Good urine output. No indications for dialysis. cc: Daniel Holcomb MD
[2018-09-19 07:38] LABS: ALB/GLOB RATIO 0.7; ALBUMIN 2.4 g/dL (3.5-5.0); CALCIUM 8.1 mg/dL (8.8-10.2); CREATININE 1.7 mg/dL (0.7-1.2); POTASSIUM 4.3 mmol/L (3.5-5.1); TOTAL BILIRUBIN 1.02 mg/dL (0.20-1.00); TOTAL PROTEIN 5.7 g/dL (6.3-8.3)
[2018-09-19] MEDS: CUBICIN 600 MG in NS 100 ML IV SCH (08:08)
[2018-09-19] MEDS: NEXIUM IV SCH ×2 (08:09→20:57)
[2018-09-19] MEDS: LEVAQUIN 500 MG/D5W 500 MG/100 ML IVPB IV SCH (08:09)
[2018-09-19 08:55] LABS: LYMPHS 16 % (21-51); MONO 2 % (1-9); SEGS 82 % (42-75)
--- NOTE | 2018-09-19 09:12 | PROGRESS NOTE ---
DATE: 09/19/2018 SUBJECTIVE: Patient continues to be comatose and intubated. He moves lower extremities purposefully. No acute issues noted per nursing staff overnight. OBJECTIVE: Vital Signs: Temperature 98.4 degrees, heart rate 92, respiratory rate 16, blood pressure 141/83, O2 saturation 100% on ventilator at FiO2 of 30%. General Examination: This is a chronically ill-appearing and looking older than his stated age, 54-year-old, male, lying in bed, in no acute distress. HEENT: Head is normocephalic and atraumatic. Pupils are less reactive to light and accommodation with corneal reflex diminished. There is an NG tube placed with tube feedings running. Neck: No JVD noted. No carotid bruits. No lymphadenopathy. No thyromegaly. Cardiovascular Examination: S1 and S2 heard. No murmurs, gallops, or rubs. Regular rate and rhythm. Respiratory Examination: Minimal coarse breath sounds noted in both pulmonary bases. Patient is not using any accessory muscles or having work of breathing. Abdomen: Soft, a little bit distended. Bowel sounds present. No organomegaly. Extremities: No clubbing, cyanosis, or edema. Peripheral pulses present in both legs. Skin excoriations and apparently some diaz distributed on both arms, abdomen, and chest wall. Neurological Examination: The patient is intubated but not sedated. Continues to be comatose. Laboratory Data: White cell count 6.31, hemoglobin 10.1, hematocrit 29.7, platelets 35,000. INR is 1.40. ABG shows pH 7.48, with pCO2 of 30, PO2 of 144. Sodium 146, creatinine 1.7, glucose 198, BUN is 74. ASSESSMENT/PLAN: 1. Acute hypoxemic respiratory failure, on ventilator. From a respiratory standpoint, the patient is doing fine. Requiring FiO2 of only 30%. Arterial blood gas continues to show good gas exchange but, unfortunately, his mental status is not allowing us to extubate this patient. He persists to be profoundly comatose. Pulmonary is following this patient. We will follow recommendations. 2. Staphylococcus aureus/Streptococcus agalactiae bacteremia. Patient currently on Levaquin and daptomycin. White cell count is back to normal. Patient is not spiking any fever. The culture that shows that infection were from the so we are going to repeat blood cultures today and see if those are negative. 3. Acute kidney injury secondary to rhabdomyolysis. CK is almost back to normal. Renal function continues to improve. BUN is still elevated. I think he is pretty much getting better from that standpoint. I do not think he has a uremic encephalopathy at this time. 4. Hypernatremia. We will continue with D5W. 5. Liver cirrhosis with encephalopathy. Lactulose and Xifaxan had been stopped 2 days ago by gastroenterology who does not think that is the reason why this patient is encephalopathic. They have signed off. 6. Shock, likely hypovolemic, resolved. 7. Suspected anoxic encephalopathy. We have done 2 CAT scans of the head which basically did not confirm any cerebral edema or something related to any anoxic encephalopathy. In any case, and considering that he continues to be comatose, I prefer to order an electroencephalogram tomorrow and see what it shows. Dr. Burt is also following this patient. We will follow recommendations. 8. Nutritional status. We will continue with G-tube feedings. 9. Diabetes mellitus type 2. We will continue with Accu-Cheks every 4 hours and sliding scale insulin as needed. 10. Disposition. We will continue to monitor this patient in the intensive care unit. His prognosis is very poor. cc: Neftali Mroe MD MTDBrian
[2018-09-19] MEDS: SOLU-MEDROL IV SCH ×2 (09:30→20:58)
[2018-09-19] MEDS: SODIUM CHLORIDE 0.9% INJ SCH (20:57)
[2018-09-20] MEDS: DUONEB (A & A) INH SCH ×6 (03:24→23:32)
[2018-09-20] MEDS: HUMALOG SUBQ SCH ×6 (03:40→23:24)
[2018-09-20 04:20] LABS: ALLEN TEST YES; BE -0.4 mmoll (-3.0-3.0); BLOOD TYPE ARTERIAL; HCO3-(ACT) 24.6 mmoll (20.0-26.0); METHB 1.3 % (0.0-1.5); O2(CT) 16.4 mL/dL (15.0-23.0); O2HB 96.1 % (95.0-99.0); PCO2(98.6) 31 mmHg (35-45); PO2(98.6) 113 mmHg (60-100); SAMPLE BLOOD; SAO2 99.3 % (95.0-100.0); pH(98.6) 7.47 (7.35-7.45)
[2018-09-20 04:21] LABS: MODALITY VENTILATOR
[2018-09-20 06:15] LABS: ALBUMIN 2.7 g/dL (3.5-5.0); CALCIUM 8.8 mg/dL (8.8-10.2); CREATININE 1.3 mg/dL (0.7-1.2); POTASSIUM 4.6 mmol/L (3.5-5.1)
--- NOTE | 2018-09-20 07:01 | Diag Imaging Result Doc PS360 ---
EXAM: CHEST-PORTABLE 09/20/2018 HISTORY: respiratory failure TECHNIQUE: AP portable at 0523 COMMENT: There is an NG tube which passes below the diaphragm and an endotracheal tube with its tip just above the thoracic inlet. There is minimal subsegmental atelectasis in the right lower lobe. This was also present on 09/19/2018. The heart size and pulmonary vascularity are within normal limits. IMPRESSION: Minimal atelectasis. Electronically signed by Zeke Rm 09/20/2018 6:59 AM
[2018-09-20] MEDS: CUBICIN 600 MG in NS 100 ML IV SCH (08:35)
[2018-09-20] MEDS: LEVAQUIN 500 MG/D5W 500 MG/100 ML IVPB IV SCH (08:42)
[2018-09-20] MEDS: SODIUM CHLORIDE 0.9% INJ SCH (08:43)
[2018-09-20] MEDS: NEXIUM IV SCH ×2 (08:43→19:27)
[2018-09-20] MEDS: SOLU-MEDROL IV SCH (08:43)
[2018-09-20 09:14] LABS: PLT 36 X1000 (130-400)
[2018-09-20 09:15] LABS: EOS# 0.03 X1000 (0.0-0.7); EOS% 0.4 % (0.0-10.0); HEMATOCRIT 29.1 % (42.0-52.0); HEMOGLOBIN 9.7 g/dL (14.0-18.0); IMM GRAN# 0.04 X1000 (0.0-0.04); IMM GRAN% 0.5 % (0.0-0.5); LYMPH# 0.68 X1000 (1.2-3.4); LYMPH% 9.1 % (20.5-51.1); MCH 30.9 PG (27-31); MCHC 33.3 g/dL (33-37); MCV 92.7 FL (81-99); MONO# 0.43 X1000 (0.11-0.59); MONO% 5.7 % (1.7-9.3); MPV 10.9 FL (7.4-10.4); NEUT# 6.33 X1000 (1.4-6.5); NEUT% 84.3 % (42.2-75.2); RBC 3.14 XMIL (4.7-6.1); RDW 17.4 % (11.5-14.5); WBC 7.51 X1000 (4.8-10.8)
--- NOTE | 2018-09-20 09:30 | PROGRESS NOTE ---
DATE: 09/20/2018 SUBJECTIVE: The patient continues to be comatose and intubated. According to nursing staff, he sometimes opens eyes, but does not follow, and also moves the lower extremities non purposefully. No acute issues noted. OBJECTIVE: Vital Signs: Temperature 98.1 degrees, heart rate 96, respiratory rate 21, blood pressure 167/91, O2 saturation 100% on mechanical ventilator at FiO2 of 30%. General: This is a chronically ill-appearing and looking older than his stated age, 54-year-old, male, lying in bed in no acute distress. HEENT: Head is normocephalic, atraumatic. Pupil are less reactive to light and accommodation, with corneal reflex diminished. NG tube is present with tube feedings running. Neck: No JVD noted. No carotid bruits. No lymphadenopathy. No thyromegaly. Cardiovascular: S1, S2 heard. No murmurs, gallops, or rubs. Regular rate and rhythm. Respiratory: Still minimal coarse breath sounds noted in both pulmonary bases. The patient is not using any accessory muscles or having work of breathing. Abdomen: Soft, a little bit distended. Bowel sounds present. No organomegaly. Extremities: No clubbing, cyanosis, or edema. Peripheral pulses present in both legs. Skin: There is skin excoriation, apparently some diaz distributing in both arms, abdomen, and chest wall. Neurological: The patient is intubated and not sedated. Continues to be comatose. LABORATORY DATA: There is no CBC from today. ABG shows pH 7.47 with pCO2 of 31, PO2 of 113. That was taken on CPAP mode with FiO2 of 30%. Sodium was 146, with creatinine 1.3, BUN 65, glucose 223. ASSESSMENT AND PLAN: 1. Acute hypoxemic respiratory failure. Clinically, this patient from that standpoint I think he is doing fine, requiring only 30% of FiO2. ABG shows good gas exchange, but as we mentioned before, the only thing that is not allowing us to extubate this patient is his mental status because he persists to be profoundly comatose. Pulmonary following this patient. Will follow recommendations. 2. Staphylococcus aureus/Streptococcus agalactiae bacteremia. Will continue with Levaquin and daptomycin. We have ordered blood cultures yesterday. Those are still pending. 3. Acute kidney injury secondary to rhabdomyolysis. Renal function is almost completely back to normal, 1.3 today. The CK is completely back to normal as well. There is mild elevation in BUN, but I think this patient is definitely getting much better from a renal standpoint. I do not think he has any uremic encephalopathy. 4. Hypernatremia. Will continue with D5W. 5. Liver cirrhosis with encephalopathy. The patient has been encephalopathic secondary to cirrhosis, but we treated with lactulose and rifaximin. Those have been stopped by Gastroenterology, who signed off. 6. Shock, likely hypovolemic, resolved. 7. Suspected anoxic encephalopathy. We have done two CT scans of the head, which basically did not show or confirm any cerebral edema or anything that suggests anoxic encephalopathy. We are going to order an electroencephalogram today. Will leave the decision to repeat a CT scan to Dr. Burt to have further evaluation of this possible condition. 8. Nutritional status. Will continue with gastrostomy tube feedings. 9. Diabetes mellitus type 2. Will continue with Accu-Cheks every 4 hours, and sliding scale insulin as needed. 10. Disposition. Will continue to monitor this patient in the intensive care unit. Will see what the electroencephalogram shows. Will go from there. cc: Neftali More MD MTDD
--- NOTE | 2018-09-20 13:18 | PROGRESS NOTE ---
DATE: 09/20/2018 SUBJECTIVE: Mr. Banks has continued very poorly responsive. He is afebrile now. WBC count 7510 this morning. He had blood cultures on 09/12/2018 growing Staph aureus and Streptococcus agalactiae. We have blood culture report pending from yesterday. OBJECTIVE: On exam, there is slight spontaneous eye opening. There is good conjugate lateral eye movement with passive head turning. Pupils are round and both react to bright light. The left pupil is consistently about 0.5 mm larger than the right in bright and in dim light. Corneal reflexes are present bilaterally. Limb tone is symmetric. With moderate noxious stimulation, best motor response in the arms was slight decerebrate posturing with the right more than the left. There was some withdrawal of the leg with noxious stimulation over each foot, much more brisk today than when I last examined him a few days ago. Neck remains supple. EEG today shows generalized slowing with nothing specific. I MPRESSION: Global encephalopathy, uncertain etiology. I am still concerned about possible hypoxic/anoxic brain injury. I do not have any urgent suggestion right now. We might consider repeat imaging later. If he becomes febrile or has other evidence of infection, we might consider checking CSF. Thanks for asking Neurology to see Mr. Banks. cc: MD RATNA Celeste III
--- NOTE | 2018-09-20 15:09 | NEPHROLOGY PROGRESS NOTE ---
DATE: 09/20/2018 TIME SEEN: 0710. SUBJECTIVE: Mr. Banks is resting quietly in bed. He looks chronically ill, though no acute distress. He remains ventilator dependent. No response. OBJECTIVE: Vital Signs: Temperature 98.1 degrees, blood pressure 147/84, heart rate 88, respirations 16. He is on ventilatory support. Last recorded saturation 100%. He has had 2,010 in. He has had 1,535 out to Kaplan catheter. Labs: His sodium is 146, potassium 4.6, chloride 113, CO2 20, BUN 65, creatinine 1.3, glucose 223. Anion gap is 13, calcium 8.8, phosphorus 4, albumin is 2.7. White count 7.51, hemoglobin 9.7, hematocrit 29.1, with a platelet count of 36,000. ABGs, pH 7.47, CO2 31, PO2 of 113, bicarbonate 24.6; this is on 30% FiO2. PHYSICAL EXAMINATION: General: This is a 53-year-old white male. He is currently resting quietly in bed. Ventilator dependent. No acute distress. Skin: Warm and dry. HEENT: Normocephalic, atraumatic. Conjunctiva is pale. The patient has LAY, less reactive to light. NG tube is present with tube feedings continuing. Oral ET tube is in place. Neck: Supple. Trachea midline. The patient has 6 cm JVD at the clavicular line with the head of the bed elevated. Cardiovascular: He is regular rate and rhythm. No murmur or gallop appreciated. Lungs: Diminished breath sounds bilaterally. Equal excursion. No accessory muscles being used. Abdomen: Soft. Slight distention. NG tube remains in place. Positive bowel sounds. Genitourinary: Kaplan catheter is in place. He has adequate urine out. Extremities: He does have some skin excoriation with some diaz distributing to both upper arms, abdomen, and chest wall. Neurological: As above. ASSESSMENT: 1. Acute kidney injury. Patient's BUN and creatinine have slowly improved. He has adequate urine output. 2. Electrolytes, acid-base balance, and anemia. These are all acceptable. 3. Acute hypoxemic respiratory failure. He remains on ventilatory support. Followed by the primary care team. 4. Bacteremia. This is followed by the primary care team. Patient is on renal- dosed antibiotics. PLAN: We will sign off at this time and remain available if indicated during his continued stay during his hospitalization. I would like to thank you for allowing us to follow with this patient. Dictated by LILY Morgan for Daniel Holcomb MD Face to face encounter, data reviewed, discussed with Jeffry Leon on 09/20/18. I agree with the above assessment and plan of care. cc: LILY Morgan MD [facility]
[2018-09-20] MEDS ORDERED: OFIRMEV 1000 MG/ISOTONIC SOLN 1,000 MG/100 ML BOTTLE IV PRN (17:00)
--- NOTE | 2018-09-20 17:03 | EEG REPORT ---
DATE: 09/20/2018 EEG NUMBER: [id number]. COMMENT: This is a digitally recorded EEG done portably in the ICU on a 53-year-old patient with persistent poor responsiveness, intubated and mechanically ventilated, not sedated. FINDINGS: The record is composed of polymorphic and rhythmic slowing, mostly 3-4 Hz symmetrically across the hemispheres. There was no posterior dominant rhythm identified. There is occasional frontal slowing into the delta range at 2-3 Hz bilaterally. There was no variation to correlate with spontaneous drowsing or sleep. Photic stimulation produced some entrainment at mid flash frequencies bilaterally. No epileptiform discharge was identified. INTERPRETATION: Abnormal EEG because of generalized slowing. CORRELATION: This is indicative of a diffuse encephalopathy and is nonspecific. There is nothing on this record to suggest the presence of a seizure as the reason for his continued poor responsiveness. cc: MD Neftali Celeste III, MD
[2018-09-20] MEDS: D5W 1,000 ML IV SCH (17:54)
[2018-09-21] MEDS: DUONEB (A & A) INH SCH ×6 (03:31→23:49)
[2018-09-21] MEDS: HUMALOG SUBQ SCH ×5 (04:00→20:04)
[2018-09-21 05:13] LABS: ALLEN TEST YES; BE -0.3 mmoll (-3.0-3.0); BLOOD TYPE ARTERIAL; HCO3-(ACT) 24.6 mmoll (20.0-26.0); METHB 1.5 % (0.0-1.5); O2HB 96.3 % (95.0-99.0); PCO2(98.6) 34 mmHg (35-45); PO2(98.6) 151 mmHg (60-100); SAMPLE BLOOD; SAO2 99.4 % (95.0-100.0); THB 16.8 g/dL (11.5-17.4); pH(98.6) 7.44 (7.35-7.45)
[2018-09-21 05:22] LABS: MODALITY VENTILATOR
[2018-09-21 05:50] LABS: PLT 33 X1000 (130-400)
[2018-09-21 05:51] LABS: BASO# 0.01 X1000 (0.0-0.2); BASO% 0.1 % (0.0-0.8); EOS% 2.4 % (0.0-10.0); HEMATOCRIT 29.2 % (42.0-52.0); HEMOGLOBIN 9.7 g/dL (14.0-18.0); IMM GRAN# 0.02 X1000 (0.0-0.04); IMM GRAN% 0.2 % (0.0-0.5); LYMPH# 0.98 X1000 (1.2-3.4); LYMPH% 11.6 % (20.5-51.1); MCHC 33.2 g/dL (33-37); MCV 93.3 FL (81-99); MONO# 0.54 X1000 (0.11-0.59); MONO% 6.4 % (1.7-9.3); NEUT# 6.72 X1000 (1.4-6.5); NEUT% 79.3 % (42.2-75.2); RBC 3.13 XMIL (4.7-6.1); RDW 17.4 % (11.5-14.5); WBC 8.47 X1000 (4.8-10.8)
[2018-09-21 06:20] LABS: ESTIMATED GFR > 60
[2018-09-21 06:37] LABS: AGAP 10; ALBUMIN 2.6 g/dL (3.5-5.0); BUN 58 mg/dL (8-22); CALCIUM 7.9 mg/dL (8.8-10.2); CHLORIDE 116 mmol/L (98-107); COSMO 316; CREATININE 1.2 mg/dL (0.7-1.2); GLUCOSE 239 mg/dL (70-104); PHOSPHORUS 3.4 mg/dL (2.7-4.5); POTASSIUM 4.2 mmol/L (3.5-5.1); SODIUM 147 mmol/L (136-145); TCO2 21 mmol/L (25-35)
[2018-09-21] MEDS: SODIUM CHLORIDE 0.9% INJ SCH (07:20)
[2018-09-21] MEDS: NEXIUM IV SCH ×2 (07:20→20:04)
--- NOTE | 2018-09-21 07:26 | Diag Imaging Result Doc PS360 ---
EXAM: CHEST-PORTABLE INDICATION: respiratory failure TECHNIQUE: One view COMPARISON: 09/20/2018 FINDINGS: Support tubes and lines are in stable positions. The minimal right lower lobe subsegmental atelectasis is approximately stable. No new consolidation is identified. Cardiac silhouette is stable. IMPRESSION: Stable chest. Electronically signed by Corby Wade 09/21/2018 7:23 AM
--- NOTE | 2018-09-21 07:44 | PULMONOLOGY PROGRESS NOTE ---
DATE: 09/20/2018 SUBJECTIVE: The patient's eyes are open. He does not respond to threat. He has some spontaneous movement of his lower extremities, but I have not seen movement of his upper extremities. OBJECTIVE: Vital Signs: Maximum temperature in the last 24 hours 99.8 degrees, blood pressure 150/87, heart rate 88, respiratory rate 19, oxygen saturation 97% on 30% FiO2. HEENT: Pupils are equal. Pupils react to light. Oropharynx appears clear with endotracheal tube in position. Neck: Supple. Chest: Reveals occasional rhonchi bilaterally. Cardiac: S1, S2. ABDOMEN: Soft. Extremities: Reveal trace edema. LABORATORY DATA: Sodium 146, potassium 4.6, chloride 113, bicarbonate 20, BUN 65, creatinine 1.3. White blood count 7.51, hemoglobin 9.7, platelet count 36,000. Arterial blood gas reveals a pH 7.47, pCO2 of 31, PO2 of 113. No new microbiology data. Chest x-ray reveals minimal atelectasis at the right base, but no dense infiltrates or effusion. IMPRESSION: 1. A 53-year-old with acute hypoxemic respiratory failure. 2. Ongoing coma/encephalopathy. 3. Rhabdomyolysis with renal failure with continued improvement. 4. Cirrhosis. 5. Presentation to the hospital with a blood glucose of 21. Severe hypoglycemia may explain his brain injury and coma. RECOMMENDATIONS: 1. Continue ventilatory support. He does open his eyes, which is an improvement over the last week. 2. Continue current antibiotic regimen. 3. Await EEG report. 4. Prognosis appears guarded to poor. Time spent in critical care management: 30+ minutes cc: Shin Murillo MD [facility]
[2018-09-21] MEDS: CUBICIN 600 MG in NS 100 ML IV SCH (07:57)
[2018-09-21] MEDS: LEVAQUIN 500 MG/D5W 500 MG/100 ML IVPB IV SCH (08:12)
[2018-09-21] MEDS: SOLU-MEDROL IV SCH (08:15)
--- NOTE | 2018-09-21 09:25 | Diag Imaging Result Doc PS360 ---
EXAM: CT HEAD W/O CONTRAST 09/21/2018 HISTORY: anoxic encephalopathy TECHNIQUE: This exam was performed using automated exposure control, adjustment of mA or kV according to patient size, and/or use of iterative reconstruction technique. COMMENT: There are calcifications in the vertebral basilar and both internal carotid arteries. There are calcifications in the globus pallidus bilaterally. There is a lacune in the centrum semiovale ovale on the left. There is no evidence of mass effect, bleed, or abnormal extra-axial fluid collection. There is fluid in the right sphenoid sinus. Otherwise the visualized paranasal sinuses are clear. The calvarium is intact. Compared to the previous examination of 09/15/2018 considering differences in technique there has been no significant change in the appearance of the brain. IMPRESSION: Advanced atherosclerotic calcification. Minimal chronic ischemic changes. No evidence of acute intracranial disease. Right sphenoid sinusitis. Electronically signed by Zeke Rm 09/21/2018 9:23 AM
--- NOTE | 2018-09-21 09:43 | PROGRESS NOTE ---
DATE: 09/21/2018 SUBJECTIVE: The patient continues to be unresponsive and intubated. He sometimes open eyes spontaneously and continues to move both lower extremities, but no other acute issues noted. OBJECTIVE: Vital Signs: Temperature 97.9 degrees, heart rate 81, respiratory rate 17 blood pressure 149/88. O2 saturation 100% on ventilator at FiO2 of 30%. General: This is a chronically ill-appearing looking older than his stated age 54-year-old male lying in bed in no acute distress. HEENT: Head is normocephalic, atraumatic. Pupils reactive to light and accommodation. Corneal reflex diminished. NG tube is present with tube feeding running. Neck: No JVD noted. No carotid bruits. No lymphadenopathy. No thyromegaly. Cardiovascular: S1, S2 heard. No murmurs, gallops, or rubs. Regular rate and rhythm. Respiratory: Minimal coarse breath sounds noted in both pulmonary bases. Patient not using any accessory muscles or having work of breathing. Abdomen: Soft and a little bit distended. Bowel sounds present. No organomegaly. Extremities: No clubbing, cyanosis, or edema. Peripheral pulses present in both legs. Skin: There is some skin excoriation and some diaz distributed in both arms, abdomen, and chest wall. Neurological: Patient is intubated and sedated. Continues to be unresponsive. LABORATORY DATA: White cell count 8.47, hemoglobin 9.7, hematocrit 29.7, and platelets 33,000. ABG shows pH 7.44 with pCO2 34, PO2 151. He is on ventilator CPAP mode and FiO2 30%. The sodium was 147. Creatinine is 1.2. BUN 58. The blood cultures from 2 days ago did not reveal any bacteria growing. ASSESSMENT AND PLAN: 1. Acute hypoxemic respiratory failure. From this standpoint, I think this patient is stable. He is on ventilator at FiO2 30%. Oxygenation is good. CO2 is also fine with normal pH so at this point, I think the only thing that we are not letting us extubate this patient is the mental status. Dr. Murillo following this patient. We will follow recommendations. 2. Staphylococcus aureus/Streptococcus agalactiae bacteremia. We will continue with Levaquin and daptomycin. Blood cultures that we have repeated 2 days ago those are negative. 3. Acute kidney injury secondary to rhabdomyolysis resolved. Renal function is finally back to normal. CK is also normal. Nephrology was following this patient but they signed off. 4. Hyponatremia. We will continue with D5W. I think we will increase the fluids to probably 150. 5. Liver cirrhosis with cephalopathy aware. Patient is not encephalopathic anymore. He has been receiving lactulose and Rifaximin, but not anymore. GI who has been following this patient signed off as well. 6. Shock resolved. 7. Thrombocytopenia most likely related to liver cirrhosis. We will continue to monitor. 8. Suspected anoxic encephalopathy. We are going to check another CT considering that he continues to be encephalopathic. His platelets have been low so for any possible bleeding we will check that out. Also, he had an EEG which basically showed generalized encephalopathy but no signs of seizures. Dr. Burt is following this patient. We will follow recommendations. 9. Nutritional status. We will continue with NG tube feedings. 10. Diabetes mellitus type 2. We will continue with Accu-Chek's every 4 hours and sliding scale insulin as well. 11. Disposition: We will continue to monitor this patient in intensive care unit. Considering that his prognosis is poor. I think palliative care consult will be a good idea for this patient. cc: Neftali More MD
[2018-09-21] MEDS: D5W 1,000 ML IV SCH (14:09)
--- NOTE | 2018-09-21 15:48 | PROGRESS NOTE ---
DATE: 09/21/2018 There has not been significant change apparent clinically. PHYSICAL EXAMINATION: On exam now, Mr. Banks has half open eyes, full horizontal eye movement with passive head turning, reactive pupils. Limb tone is symmetric. I did not elicit decerebrate posturing with noxious stimulation today, but there was not purposeful withdrawal. Neck is supple. CT scan done today does not show evidence of widespread edema or other change compared to prior scan. IMPRESSION: Persistent coma, uncertain etiology. Major concern is still anoxic brain injury. Most intoxication syndromes would have been significantly improved by now. The EEG showed generalized slowing with nothing specific yesterday. We might repeat EEG to see if we can document deterioration, specifically to look for evidence of developing features of anoxic brain injury. I do not think repeat EEG is urgent. I do not have any specific suggestion otherwise. Thanks for asking Neurology to see Mr. Banks. cc: MD RATNA Celeste III
--- NOTE | 2018-09-21 20:08 | PULMONOLOGY PROGRESS NOTE ---
DATE: 09/21/2018 SUBJECTIVE: The patient appears to be awake. His eyes are open. He does not respond to painful stimuli. He does not respond to the threat. He does have a cough effort with stimulation. He can easily trigger a breath that is set to -20 cm of water. OBJECTIVE: Vital Signs: Maximum temperature in the last 24 hours 100.1 degrees. Blood pressure 154/88, heart rate 88, respiratory rate 15, oxygen saturation 99%. HEENT: Pupils are equal reactive. Oropharynx appears clear. Neck: Is supple. Chest: Reveals occasional rhonchi bilaterally. Cardiac exam: S1-S2. Abdomen: Is soft. Extremities: Without edema. LABORATORIES: Minimal atelectasis right base. CT scan of the head reveals significant vascular calcification with chronic ischemic changes, but no evidence of acute disease. White blood count 8.47, hemoglobin 9.7, platelet count 33,000. Sodium 147, potassium 4.2, chloride 116, bicarbonate 21, BUN 58, creatinine 1.2. Arterial blood gas, pH 7.44, pCO2 of 34, PO2 of 151 on CPAP. IMPRESSION: A 53-year-old with 1. Acute hypoxemic respiratory failure. 2. Comma/encephalopathy. 3. Rhabdomyolysis with renal failure, which has continued to resolve. 4. Cirrhosis. 5. Profound hypoglycemia on presentation to the hospital. DISCUSSION: A 53-year-old with problems outlined above. He does have good spontaneous respiratory effort. Had has been dilating on his own for the last several days. He has an adequate cough reflex with stimulation. He does not appear to be weak. PLAN: 1. Extubation today. 2. Continue antibiotics and fluid resuscitation. 3. Prognosis appears to be guarded given failure to improve on hospital day #9. Time spent in critical care management: 30+ minutes cc: Shin Murillo MD [facility]
[2018-09-22] MEDS: HUMALOG SUBQ SCH ×5 (00:11→16:31)
[2018-09-22] MEDS: DUONEB (A & A) INH SCH ×4 (03:27→15:31)
[2018-09-22 05:05] LABS: EOS# 0.18 X1000 (0.0-0.7); EOS% 1.5 % (0.0-10.0); HEMATOCRIT 31.7 % (42.0-52.0); HEMOGLOBIN 10.5 g/dL (14.0-18.0); IMM GRAN# 0.02 X1000 (0.0-0.04); IMM GRAN% 0.2 % (0.0-0.5); LYMPH# 1.24 X1000 (1.2-3.4); LYMPH% 10.1 % (20.5-51.1); MCH 30.8 PG (27-31); MCHC 33.1 g/dL (33-37); MONO# 0.54 X1000 (0.11-0.59); MONO% 4.4 % (1.7-9.3); MPV 12.2 FL (7.4-10.4); NEUT# 10.34 X1000 (1.4-6.5); NEUT% 83.8 % (42.2-75.2); PLT 46 X1000 (130-400); RBC 3.41 XMIL (4.7-6.1); RDW 17.4 % (11.5-14.5); WBC 12.32 X1000 (4.8-10.8)
[2018-09-22 05:14] LABS: AGAP 12; ALBUMIN 2.6 g/dL (3.5-5.0); BUN 46 mg/dL (8-22); CALCIUM 8.8 mg/dL (8.8-10.2); CHLORIDE 113 mmol/L (98-107); COSMO 305; CREATININE 0.9 mg/dL (0.7-1.2); ESTIMATED GFR > 60; GLUCOSE 171 mg/dL (70-104); PHOSPHORUS 2.8 mg/dL (2.7-4.5); POTASSIUM 4.1 mmol/L (3.5-5.1); SODIUM 145 mmol/L (136-145); TCO2 20 mmol/L (25-35)
[2018-09-22] MEDS ORDERED: DIPRIVAN 1% ONE (06:53)
[2018-09-22] MEDS ORDERED: XYLOCAINE-MPF 2% ONE (06:54)
[2018-09-22] MEDS ORDERED: QUELICIN (DOSE) ONE (06:54)
[2018-09-22] MEDS ORDERED: SODIUM CHLORIDE 0.9% 20 ML ONE (06:54)
[2018-09-22] MEDS ORDERED: NEO-SYNEPHRINE ONE (06:54)
--- NOTE | 2018-09-22 07:10 | Diag Imaging Result Doc PS360 ---
EXAM: CHEST-PORTABLE 09/22/2018 HISTORY: respiratory failure TECHNIQUE: AP portable at 0536 COMMENT: There is an NG tube which passes below the diaphragm into the stomach. The endotracheal tube which was present on 09/21/2018 has been removed. There is volume loss on the right compared to the previous study. There is increased atelectasis in the right lower and/or middle lobe. The mediastinal contents are shifted somewhat to the right. The hemidiaphragm is elevated. IMPRESSION: Worsened atelectasis on the right. The possibility of mucous plugging in the right mainstem bronchus cannot be excluded. Electronically signed by Zeke Rm 09/22/2018 7:07 AM
[2018-09-22 07:12] LABS: BLOOD TYPE ARTERIAL; SAMPLE BLOOD
[2018-09-22 07:13] LABS: ALLEN TEST YES; BE -1.3 mmoll (-3.0-3.0); HCO3-(ACT) 23.9 mmoll (20.0-26.0); METHB 0.8 % (0.0-1.5); MODALITY VENTILATOR; O2HB 94.3 % (95.0-99.0); PCO2(98.6) 34 mmHg (35-45); PO2(98.6) 72 mmHg (60-100); SAO2 96.9 % (95.0-100.0); SRATE 16 BPM; THB 10.5 g/dL (11.5-17.4); TVOL 500 mL; pH(98.6) 7.43 (7.35-7.45)
--- NOTE | 2018-09-22 07:18 | Diag Imaging Result Doc PS360 ---
EXAM: CHEST-PORTABLE 09/22/2018 HISTORY: ET tube placement TECHNIQUE: AP portable at 0647 COMMENT: There is an endotracheal tube with its tip at the thoracic inlet. There is an NG tube with its tip below the diaphragm. There is volume loss on the right. This is worse than at the time of the previous study at 0536. IMPRESSION: Worsening right atelectasis, possibly related to mucous plugging in the right mainstem bronchus. Electronically signed by Zeke Rm 09/22/2018 7:15 AM
--- NOTE | 2018-09-22 07:19 | Diag Imaging Result Doc PS360 ---
EXAM: CHEST-PORTABLE 09/22/2018 HISTORY: ett placement TECHNIQUE: AP portable at 0709 COMMENT: There is an endotracheal tube with its tip at thoracic inlet and an NG tube with its tip below the diaphragm. There is increasing opacification and volume loss in the right upper lobe compared to the previous study of 0647. Otherwise there has been no significant change. IMPRESSION: Worsening right upper lobe atelectasis. Electronically signed by Zeke Rm 09/22/2018 7:17 AM
[2018-09-22] MEDS: D5W 1,000 ML IV SCH ×2 (08:00→10:40)
[2018-09-22] MEDS: NEXIUM IV SCH (08:05)
[2018-09-22] MEDS: CUBICIN 600 MG in NS 100 ML IV SCH (08:05)
[2018-09-22] MEDS: SOLU-MEDROL IV SCH (08:07)
[2018-09-22] MEDS: LEVAQUIN 500 MG/D5W 500 MG/100 ML IVPB IV SCH (08:07)
[2018-09-22] MEDS ORDERED: MUCOMYST 20% INH SCH (09:30)
--- NOTE | 2018-09-22 09:40 | PROGRESS NOTE ---
DATE: 09/22/2018 SUBJECTIVE: Patient has been extubated around 1 p.m. yesterday. Apparently he was doing fine, having a good respiratory effort, but overnight, according to nursing staff, the patient started to desaturate. Thick, white color secretion was removed. The patient was placed on BiPAP then but continues to be in more respiratory distress, so Dr. Murillo decided to reintubate this patient. OBJECTIVE: Vital Signs: Temperature 98.7 degrees, heart rate 98, respiratory 20, blood pressure 125/76, O2 saturation 95% on BiPAP. General: This is a chronically ill-appearing and looking older than stated age 53-year-old male, lying in bed, in no acute distress. HEENT: Head is normocephalic, atraumatic. Corneal reflex diminished. NG tube present with tube feeding running. Neck: No JVD noted. No carotid bruits. No lymphadenopathy. No thyromegaly. Cardiovascular: S1 and S2 heard. Tachycardic but no murmurs, gallops, or rubs noted. Respiratory: Coarse breath sounds noted in both pulmonary deng. Just minimal wheezing. Patient not using any accessory muscles or having work of breathing. Abdomen: Soft, a little bit distended. Bowel sounds present. No organomegaly. Extremities: No clubbing, cyanosis, or edema. Peripheral pulses present in both legs. Skin: Some skin excoriations on arms, abdomen. Neurological: The patient at this time is using BiPAP. Eyes are open but he does not answer any questions or follow any basic commands. LABORATORY DATA: White count 12.32, hemoglobin 10.5, hematocrit 31.7, platelets 46,000. BMP reveals sodium 145 with normal creatinine and BUN 46. ASSESSMENT AND PLAN: 1. Acute hypoxemic respiratory failure. Unfortunately, this patient is not doing good. We extubated this patient yesterday around 1 p.m. but unfortunately he started developing respiratory distress, so the patient is going to be intubated. Considering his prolonged intubation, I think at this time he may need to have a trach. Dr. Murillo from Pulmonary is following this patient. We will follow recommendation. 2. Staphylococcus aureus/Streptococcus agalactiae bacteremia. Patient is on daptomycin and Levaquin with culture repeated 3 days ago. They did not show any growth at this point. We will continue with the same management. 3. Acute kidney injury secondary to rhabdomyolysis, resolved. 4. Hyponatremia, resolved. 5. Liver cirrhosis with encephalopathy, resolved. Patient is not on any medications. 6. Shock, resolved. 7. Thrombocytopenia most likely related to liver cirrhosis. Getting better. We will continue to monitor. 8. Suspected anoxic encephalopathy. We have repeated CT chest today and it did not show any new findings. EGD was performed as well. What we have noticed is right hemiparesis. In any case, Neurology is following this patient. We will follow recommendations. 9. Nutritional status. We will continue with NG tube feedings. 10. Diabetes mellitus type 2. We will continue with Ac cu-Cheks every 4 hours and sliding scale insulin as well. 11. Disposition. At this point, we will continue to monitor this patient closely. I think his prognosis is very poor considering that he is being reintubated. I think at this point, we will see what Palliative Care has to say. Palliative Care will talk with the family and we will go from there. cc: Neftali More MD
--- NOTE | 2018-09-22 10:21 | PROGRESS NOTE ---
DATE: 09/22/2018 SUBJECTIVE: Mr. Banks was extubated and required re-intubation overnight. OBJECTIVE: He looks about the same clinically to me today as yesterday. He is intubated and unresponsive. There is minimal eye opening, but not to command. There is full horizontal eye movement and good vertical eye movement with passive head turning and tilting. Facial motility appears symmetric. Limb tone is symmetric. Again, today, I could not document definite decerebrate posturing. Plantar response is extensor bilaterally. Neck is supple. IMPRESSION: Persistent global encephalopathy. Still, concern for anoxic event. At this point, it becomes less and less likely to be reversible. I do not have any urgent suggestion from Neurology standpoint. We might consider repeating electroencephalogram later for comparison with initial record to see if we can document some deterioration, particularly to see if there is some electroencephalogram change to correlate with anoxic injury. Thanks for asking Neurology to see Mr. Banks. cc: MD RATNA Celeste III
--- NOTE | 2018-09-22 11:04 | PULMONOLOGY PROGRESS NOTE ---
DATE: 09/22/2018 INTERIM HISTORY: The patient had progressive increase in oxygen requirements through the evening. He is not coughing or clearing his secretions. The patient had increased work of breathing, and intubation was recommended this morning around shift change. SUBJECTIVE: General: The patient is poorly responsive. He is on mechanical ventilation. No increased work of breathing. Vital Signs: Blood pressure 115/81, heart rate 94, respiratory rate 12, oxygen saturation 100%. HEENT: Pupils are equal and reactive. Oropharynx appears dry, but clear. Cardiac: Regular rate. Normal S1. Normal S2. Chest: Diffuse bilateral rhonchi with decreased breath sounds on the right. Abdomen: Soft with diminished bowel sounds present. Extremities: Without edema. IMAGING AND LABORATORY DATA: Chest x-rays this morning reveal progressive atelectasis/consolidation in the right hemithorax. White blood count 12.32, hemoglobin 10.5, platelet count 46,000. Sodium 145, potassium 4.1, chloride 113, carbon dioxide level 20, BUN 46, creatinine 0.9, glucose 171. Arterial blood gas this morning on mechanical ventilation shows pH 7.43, pCO2 of 34, PO2 of 72. IMPRESSION: A 53-year-old with: 1. Acute hypoxemic respiratory failure. 2. Ongoing coma/encephalopathy. 3. Renal failure with continued resolution. 4. Cirrhosis. 5. Profound hypoglycemia on presentation to the hospital. DISCUSSION: A 53-year-old with problems outlined above. The patient was strong enough for extubation yesterday, but does not cough and clear his secretions, and had progressive atelectasis with increased oxygen requirements. If mental status does not improve, he will likely require a tracheostomy if continue aggressive treatments are planned. RECOMMENDATIONS: 1. Reintubation this morning. 2. Sputum for C and S. 3. Add Mucomyst to bronchodilators. 4. Recommend Palliative Care consultation. Time spent in critical care management: 30+ minutes cc: Shin Murillo MD [facility]
[2018-09-22] MEDS ORDERED: ATIVAN IV PRN (18:16)
[2018-09-22] MEDS: MORPHINE IV PRN (20:01)
[2018-09-23] MEDS: MORPHINE IV PRN ×2 (00:02→04:59)
[2018-09-23] MEDS ORDERED: TYLENOL PR PRN (09:13)
--- NOTE | 2018-09-23 09:49 | PROGRESS NOTE ---
DATE: 09/23/2018 SUBJECTIVE: Patient had been extubated yesterday and now, by my examination, he does not follow any commands. He looks to be comfortable. OBJECTIVE: Vital Signs: Temperature 99.4 degrees, heart rate 116, respiratory rate 14, pressure 123/95, O2 saturation 95% on a nonrebreather mask. General Examination: This is a chronically ill-appearing, 54-year-old, male, lying in bed, in no acute distress. Cardiovascular Examination: S1 and S2 heard. No murmurs, gallops, or rubs. Respiratory Examination: Coarse breath sounds noted in both pulmonary deng. Neurological Examination: The patient is noticed to have open eyes but does not follow any commands and he does not talk. ASSESSMENT AND PLAN: 1. Acute hypoxemic respiratory failure. 2. Staphylococcus aureus/Staphylococcus agalactiae bacteremia. 3. Acute kidney injury. 4. Hyponatremia. 5. Liver cirrhosis. 6. Thrombocytopenia. 7. Possible anoxic encephalopathy. 8. Disposition. This patient has been extubated. As per family request, to have a comfort care measures on him. The patient is on morphine and Ativan as needed. It looks like the patient is comfortable so at this point, we will continue to monitor this patient closely. As we mentioned before, he is Do Not Resuscitate level 1 and on comfort care measures only. cc: Neftali More MD
--- NOTE | 2018-09-24 00:31 | PULMONOLOGY PROGRESS NOTE ---
DATE: 09/23/2018 SUBJECTIVE/INTERIM HISTORY: Since yesterday morning, the patient was extubated at family request for comfort measures. He has now been transferred to the floor. He appears comfortable. He does not follow commands. He does have mild audible rhonchi. OBJECTIVE: Vital signs: Blood pressure 137/95, heart rate 116, respiratory rate 16. He has been afebrile for the last 24 hours. HEENT: Pupils are equal. Oropharynx appears dry. Neck: Supple. Chest: Reveals audible rhonchi bilaterally. Cardiac: S1, S2. Abdomen: Soft. Extremities: Without edema, but reveal prior injuries. LABORATORIES: There is no new laboratory data. IMPRESSION: A 53-year-old presented to the hospital with 1. Acute hypoxemic respiratory failure. 2. Severe hypoglycemic. 3. Acute renal failure. 4. Cirrhosis of the liver. 5. Persistent coma/encephalopathy with no improvement after 11 days of hospitalization. The patient was intubated, then extubated, and then reintubated for failing to clear secretions. He appears to be actively dying. PLAN: 1. Agree with withdrawal of aggressive care and initiation of palliative care measures. 2. No additional pulmonary recommendations. Will sign off his case. Please reconsult if needed. cc: Shin Murillo MD
--- NOTE | 2018-09-24 11:55 | PROGRESS NOTE ---
DATE: 09/24/2018 SUBJECTIVE: Patient continues to be unresponsive. He looks comfortable though. OBJECTIVE: Vital Signs: Temperature 98.5 degrees, heart rate 118, respiratory rate 22, blood pressure 131/75, O2 saturation 97% on nonrebreather mask. General: This is a chronically ill- appearing, 53-year-old male, lying in bed, in no acute distress. HEENT: Head is normocephalic and atraumatic. Neck: No JVD noted. No carotid bruits. No lymphadenopathy. No thyromegaly. Continues to be unresponsive. Cardiovascular: S1, S2 heard. No murmurs, gallops, or rubs. Respiratory: Coarse breath sounds noted in both pulmonary bases. Neurological: Patient is still unresponsive. ASSESSMENT: 1. Acute hypoxemic respiratory failure. 2. Staphylococcus and Streptococcus agalactiae bacteremia. 3. Acute kidney injury. 4. Hyponatremia. 5. Liver cirrhosis. 6. Thrombocytopenia. 7. Possible anoxic encephalopathy. PLAN: At this point, patient is comfort care measures only. Will continue to monitor this patient closely. Will adjust the doses of morphine and Ativan as needed. cc: Neftali More MD
[2018-09-24] MEDS: MORPHINE IV PRN (23:04)
[2018-09-25] MEDS: MORPHINE IV PRN ×3 (11:59→21:46)
--- NOTE | 2018-09-25 15:15 | PROGRESS NOTE ---
DATE: 09/25/2018 SUBJECTIVE: Patient has no major complaints. OBJECTIVE: Vital Signs: Blood pressure 120/67, heart rate 110, respiratory rate 28, temperature 98.6 degrees, satting 100% on non-rebreather. He is unresponsive. Eyes are rolled back in his head and he is breathing heavily. Cardiovascular: Tachy. Pulmonary: Bilateral breath sounds. Clear to auscultation. GI: Soft, nontender, nondistended. Bowel sounds are positive. LABORATORY DATA: No new data today. PROBLEM LIST: 1. Acute hypoxic respiratory failure. 2. Staphylococcus and Streptococcus bacteremia. 3. Acute kidney injury. 4. Cirrhosis. PLAN: We are continuing comfort care. He appears to be comfortable. No major issues. No family was available, so we are just monitoring him for the time being. cc: Gabe Boateng MD
[2018-09-25] MEDS: ATROPINE 1 % OPHTH SOLN SL PRN (23:49)
[2018-09-26] MEDS: MORPHINE IV PRN ×4 (01:20→09:07)
[2018-09-26] MEDS: ATROPINE 1 % OPHTH SOLN SL PRN (05:49)
--- NOTE | 2018-09-26 19:34 | PROGRESS NOTE ---
DATE: 09/26/2018 SUBJECTIVE: The patient is minimally responsive, agonally breathing. OBJECTIVE: Vital Signs: Blood pressure is 97/52, heart rate of 97, respiratory rate of 24, temperature 98.5 degrees, and 91% on non-rebreather. Cardiovascular: Regular rate and rhythm. Pulmonary: Bilateral breath sounds. Clear to auscultation. GI: Soft, nontender, nondistended. Bowel sounds are positive. No new lab work. PROBLEM LIST: 1. Acute hypoxic respiratory failure. 2. Staphylococcal and streptococcal bacteremia in the setting of renal failure and cirrhosis. 3. We are going to continue comfort care. is eminent. Continue to monitor closely. cc: Gabe Boateng MD
[2018-09-27] MEDS: ATROPINE 1 % OPHTH SOLN SL PRN ×2 (10:03→19:39)
--- NOTE | 2018-09-27 15:46 | PROGRESS NOTE ---
DATE: 09/27/2018 SUBJECTIVE: Patient has no major complaints. OBJECTIVE: Blood pressure 93/59, heart rate of 103, respiratory rate 24, temperature 97.9 degrees and 100% on 5 L.Cardiovascular: Regular rate and rhythm. Pulmonary: Bilateral breath sounds. Clear to auscultation. GI: Soft, nontender, and nondistended. Bowel sounds are positive. PROBLEM LIST: Acute hypoxic respiratory failure. Staphylococcal streptococcal bacteremia. Renal failure. Cirrhosis. We are continuing comfort care measures. He is deteriorating, but not deteriorating rapidly. We will continue to monitor closely. cc: Gabe Boateng MD
[2018-09-28] MEDS: MORPHINE IV PRN (07:28)
[2018-09-28] MEDS: ATROPINE 1 % OPHTH SOLN SL PRN (07:29)
[2018-09-28 07:56] VITALS: BP 83/47
--- NOTE | 2018-09-28 20:37 | DISCHARGE SUMMARY ---
ADMISSION DATE: 09/12/2018 DISCHARGE DATE: 09/28/2018 PRIMARY CARE PROVIDER: LILY Avery. ADMISSION DIAGNOSES: 1. Acute respiratory failure on ventilator. 2. Status post cardiac arrest. 3. An acute bronchitis. 4. An acute renal failure. 5. Liver cirrhosis with hepatic encephalopathy and an ammonia level over 400 and shock. DISCHARGE DIAGNOSES: 1. An acute hypoxic respiratory failure. 2. Staphylococcal streptococcal bacteremia. 3. Renal failure. 4. Cirrhosis. 5. Comfort care measures with hospice. 6. Respiratory arrest and pronounced at 1243 on 09/28/2018. CONSULTATIONS: Pulmonology, General Surgery, Nephrology, GI, Cardiology, and Neurology . SUMMARY OF FINDINGS: This is a 53-year-old male who was completely unresponsive, sedated and intubated on arrival from EMS had been found unresponsive by a family member provided CPR. According to EMS he was found with agonal respirations so he was intubated on the scene and brought to the emergency department, was admitted initially to the intensive care unit, was recommended to have 2 units of packed red blood cells. He was followed by Pulmonology. We did an abdomen ultrasound on 09/13/2018 that showed cirrhosis, splenomegaly and ascites. We did a head CT on 09/15/2018 that showed no evidence of acute intracranial pathology by CT. Determination was made for comfort measures to be provided for this patient and he was transferred to the medical floor and was pronounced with no respirations, no blood pressure, no pulse at 1243 on 09/28/2018. TIME SPENT: 35 minutes. Dictated by LILY Leon for Gabe Boateng MD cc: LILY Gonzalez MD
--- NOTE | 2018-09-28 23:44 | DISCHARGE SUMMARY ---
ADMISSION DATE: 09/12/2018 DISCHARGE DATE: 09/28/2018 ADDENDUM: The patient was seen and pronounced at 12:18, time of . He was pulseless and apneic. He was a comfort care patient, extremely febrile this morning. CAUSE OF : Acute hypoxic respiratory failure due to streptococcal bacteremia, associated acute renal failure, associated cirrhosis. cc: Gabe Boateng MD
== END 2018-09-28 12:43 | disposition expired | DRG 870 ==
LOC: SUPCPDRO → EDBD → ED 14:13 → SUATTDRO 18:42 → MERGE 18:42 → ICU 18:42 → 3N 09-22 22:03
PROVIDERS: ATTEND Internal Medicine
CPT/HCPCS: 31500; 36430; 51702; 70450; 71010; 71045; 71260; 72125; 74177; 76700; 80053; 80069; 80074; 80101; 80301; 80307; 80320; 80324; 80345; 80346; 80353; 80358; 80361; 80365; 81001; 82055; 82103; 82140; 82270; 82390; 82550; 82553; 82570; 82805; 82948; 83516; 83605; 83735; 83992; 84100; 84156; 84300; 84484; 85018; 85025; 85610; 85730; 86038; 86039; 86255; 86850; 86900; 86901; 86920; 87040; 87070; 87077; 87088; 87186; 87205; 93005; 93010; 93306; 94002; 94003; 94640; 94660; 94761; 95816; 96365; 96366; 96367; 96368; 96375; 99285; A9270; C8929; G0431; G0434; G0479; G0480; G6040; J0131; J0330; J0360; J0610; J0878; J1720; J1815; J1940; J1956; J2020; J2060; J2185; J2250; J2270; J2370; J2543; J2920; J3370; J3480; J7030; J7040; J7042; J7070; P9016; P9047; Q9957; Q9967; XXXXX